=== PATIENT | female | born 1970 | race Caucasian/White ===

== ENCOUNTER 2022-08-28 08:56 | Inpatient (IN) | payer OTHER ==
--- OUTSIDE RECORDS SUMMARY | 2022-08-28 09:03 | XMS REPORT | Continuity of Care Document ---
:1970 Author Organization [facility] t Address [address] [place] [address] Care Team Providers Name Role Phone Asked, No Pcp Primary Care Physician Unavailable Elda Fofana Attending Clinician Unavailable Chanelle Bunn Attending Clinician Unavailable [email or web address] Attending Clinician Unavailable Juaquin STEVENS, Rudy Subramanian Attending Clinician Roselia Harper Attending Clinician Padmini Laws Attending Clinician [phone] [email or web address]_Anding_R Attending Clinician Unavailable Daron Mortensen Attending Clinician [phone] Noelle Attending Clinician Unavailable Le Echavarria MA Attending Clinician Unavailable Theresa STEVENS, Lucien Santos Attending Clinician Radha STEVENS, Julia Attending Clinician Yazan STEVENS, Casandra Attending Clinician Sohan STEVENS, Kvng Price Attending Clinician [phone] Jose Juan Colin Attending Clinician [phone] MIKEY DILLON Attending Clinician Unavailable MIKEY DILLON Attending Clinician Unavailable Mikey Dillon MD Attending Clinician Geovanna BERNAL Attending Clinician [phone] [email or web address]_D Attending Clinician Unavailable LIT TIERNEY Attending Clinician Unavailable GC_[email or web address]_[email or web address]_P Admitting Clinician Unavailable GC_SWHAOMC_Anding_R Admitting Clinician Unavailable Bridger_Ene Admitting Clinician Unavailable [email or web address]_D Admitting Clinician Unavailable Payers Payer Name Policy Type Policy Number Effective Date Expiration Date S thomas AETNA (POS) [id number] 2009 00:00:00 AETNA CHOICE [id number] 2018 POS II 00:00:00 AETNA C1 [id number] 2018 [facility] 00:00:00 - [facility] Problems Condition Condition Condition Status Onset Resolution Last Treating Co mments Source Name Details Category Date Date Treatment Clinician Date Female Female Problem Active [facility] stress Stress 4-30 Medical incontinen Incontinen 00:00: ce ce 00 Chronic Chronic Disease Active [facility] left hip left hip 2-21 st pain pain 00:00: Hospita 00 l [id number] Seasonal Problem Active Comm on allergic Spirit rhinitis, - [facility] unspecifie [facility] [id number] Mixed Problem Active Common hyperlipid Spirit emia [facility] No known No known Disease Unive rs active active ity of problems problems [facility] Allergies, Adverse Reactions, Alerts Allergy Allergy Status Severity Reaction(s) Onset Inactive Treating Comm ents Source Name Type Date Date Clinician No Known DA Active U 2018-08 [facility] 08[facility] [place] [facility] 00:[facility] 00 dic Hosp[facility] l No Known DA Active U 2010-08 [facility] Allergie 08-25 [place] [facility] 00 dic [facility]osp[facility] l NO KNOWN Drug Active Univers ALLERGIE Class ity of S [facility] Family History Family Member Diagnosis Comments Start Date Stop Date Source Maternal grandmother Diabetes [facility] Social History Social Habit Start Date Stop Date Quantity Comments Source History of [facility] - Tobacco Use [facility] Sex Assigned At [facility] - [facility] Alcohol intake 2021-11-06 2021-11-06 Current drinker [facility] 00:00:00 [facility]:00:00 of alcohol Hospital (finding) Tobacco use and 2019-10-14 2019-10-14 Smokeless tobacco [facility] exposure 00:00:00 00:00:00 non-user Hospital Tobacco Comment 2019-10-14 2019-10-14 none [facility] 00:00:00 00:00:00 Hospital Smoking Status Start Date Stop Date Source Never Smoker [facility] Medications Ordered Filled Start Stop Current Ordering Indication Dosage Frequency Signature Comments Components Source Medication Medication Date Date Medication? Clinician (SIG) Name Name pregabalin Yes 25mg Q.5D Take 1 Metho di (LYRICA) 25 04-[address] MG capsule 11:35: (25 mg Hospi ta 21 total) by l mouth 2 (two) times a day. cetirizine Yes 10mg QD Take 1 Meth[facility] di (ZyrTEC) 10 04-23 tablet (10 st MG tablet 11:35: mg total) Hos brendon 21 by mouth l daily. celecoxib 2021- No 200mg QD Take 1 Meth nik (CeleBREX) 04-[address] 200 MG 00:00: 04:59 (200 mg Hospita capsule 00 :00 total) by l mouth daily for 21 days. gabapentin 2020-08 No 300mg QD Take 1 Met hodi (NEURONTIN) 10-[address] 300 mg 00:00: 00:00 (300 mg Hospita capsule 00 :00 total) by l mouth nightly. nitrofurant 2020-08 No Metho di oin, 204-23 st macrocrysta 00:00: 00:00 Hospi ta l-monohydra 00 :00 l te, (MACROBID) 100 MG capsule cranberry cranberry No 2capsul Q1D cranberry [facility] 1,000 mg 1,000 mg 04-24 e(s) 1,000 mg Med ical capsule 2 capsule 2 00:00: capsule 2 capsules capsules 00 capsules every day every day every day by oral by oral by oral route. route. route. cranberry cranberry 2021-0 No 2capsul Q1D cranberry [facility] 1,000 mg 1,000 mg 9-01 e(s) 1,000 mg Med ical capsule 2 capsule 2 00:00: capsule 2 capsules capsules 00 capsules every day every day every day by oral by oral by oral route. route. route. cranberry cranberry No 2capsul Q1D cranberry [facility] 1,000 mg 1,000 mg 9-01 e(s) 1,000 mg Med ical capsule 2 capsule 2 00:00: capsule 2 capsules capsules 00 capsules every day every day every day by oral by oral by oral route. route. route. cranberry cranberry No 2capsul Q1D cranberry [facility] 1,000 mg 1,000 mg 9-01 e(s) 1,000 mg Med ical capsule 2 capsule 2 00:00: capsule 2 capsules capsules 00 capsules every day every day every day by oral by oral by oral route. route. route. cranberry cranberry No 2capsul Q1D cranberry [facility] 1,000 mg 1,000 mg - e(s) 1,000 mg Med ical capsule 2 capsule 2 00:00: capsule 2 capsules capsules 00 capsules every day every day every day by oral by oral by oral route. route. route. Triamcinolo Triamcinolo No BID Triamcinol ne ne 5-06 one Acetonide Acetonide 00:00: Acetonide 0.1 % 0.1 % 00 0.1 % Triamcinolo Triamcinolo 0 No BID Triamcinol ne ne 5-06 one Acetonide Acetonide 00:00: Acetonide 0.1 % 0.1 % 00 0.1 % Triamcinolo Triamcinolo 0 No BID Triamcinol ne ne 5-06 one Acetonide Acetonide 00:00: Acetonide 0.1 % 0.1 % 00 0.1 % Diclofenac Diclofenac 2019-08 No 1{table BID Diclofenac Sodium 50 Sodium 50 2-02 t} Sodium 50 MG MG 00:00: MG 00 Diclofenac Diclofenac 2019-08 No 1{table BID Diclofenac Sodium 50 Sodium 50 2-02 t} Sodium 50 MG MG 00:00: MG 00 Diclofenac Diclofenac 2019-08 No 1{table BID Diclofenac Sodium 50 Sodium 50 2-02 t} Sodium 50 MG MG 00:00: MG 00 Diclofenac Diclofenac 2019-08 No 1{table BID Diclofenac Sodium 50 Sodium 50 2 t} Sodium 50 MG MG 00:00: MG 00 Diclofenac Diclofenac 2019-08- No 1{table BID Diclofenac Sodium 50 Sodium 50 09-25 t} Sodium 50 MG MG 00:00: 00:00 MG 00 :00 PredniSONE PredniSONE 2020- No Deni Pruitt 1 tablet Common 05-01 Del Angel [facility] 00:00: 00:00 - CHI 00 :00 [facility] Fish Oil Fish Oil Yes Deni Pruitt 1 capsule Common [facility] Womens Womens Yes Deni Pruitt as Common Multivitami Multivitami Del Angel directed Spirit n n [facility] Advil Advil Yes Deni Pruitt as Common Allergy & Allergy & Del Angel directed S pirit Congestion Congestion - C [facility] Vitamin C Vitamin C Yes Deni Pruitt 1 tablet Common [facility] Calcium Calcium Yes Deni Pruitt 1 tablet Com kiera Del Angel with a Spirit meal [facility] Zyrtec Zyrtec No Zyrtec Allergy Allergy Allergy Calcium Calcium No 1{table QD Calcium 2209-5545 4139-8928 t_with_ [id number] MG-UNIT MG-UNIT a_meal} MG-UNIT Vitamin C Vitamin C No 1{table QD Vitamin C 1000 MG 1000 MG t} 1000 MG Womens Womens No Womens Multivitami Multivitami Multivitam n - n - in - Vitamin C Vitamin C No 1{table QD Vitamin C 1000 MG 1000 MG t} 1000 MG Calcium Calcium No 1{table QD Calcium 4532-0260 9632-7087 t_with_ [id number] MG-UNIT MG-UNIT a_meal} MG-UNIT Womens Womens No Womens Multivitami Multivitami Multivitam n - n - in - Zyrtec Zyrtec No Zyrtec Allergy Allergy Allergy Calcium Calcium No 1{table QD Calcium [id number] [id number] t_with_ [id number] MG-UNIT MG-UNIT a_meal} MG-UNIT Zyrtec Zyrtec No Zyrtec Allergy Allergy Allergy Womens Womens No Womens Multivitami Multivitami Multivitam n - n - in - Vitamin C Vitamin C No 1{table QD Vitamin C 1000 MG 1000 MG t} 1000 MG Calcium Calcium No 1{table QD Calcium [id number] 0328-1214 t_with_ [id number] MG-UNIT MG-UNIT a_meal} MG-UNIT Zyrtec Zyrtec No Zyrtec Allergy Allergy Allergy Womens Womens No Womens Multivitami Multivitami Multivitam n - n - in - Vitamin C Vitamin C No 1{table QD Vitamin C 1000 MG 1000 MG t} 1000 MG Calcium Calcium No 1{table QD Calcium [id number] 3051-8005 t_with_ [id number] MG-UNIT MG-UNIT a_meal} MG-UNIT Zyrtec Zyrtec No Zyrtec Allergy Allergy Allergy Womens Womens No Womens Multivitami Multivitami Multivitam n - n - in - Vitamin C Vitamin C No 1{table QD Vitamin C 1000 MG 1000 MG t} 1000 MG calcium calcium No calcium [facility] Fish Oil Fish Oil No Fish Oil Ana Luisa via Medical Macrobid Macrobid No Macrobid Ana Luisa via 100 mg 100 mg 100 mg Medical capsule Tk capsule Tk capsule Tk 1 cap po x 1 cap po x 1 cap po x 1 day after 1 day after 1 day each visit each visit after each To reduce To reduce visit To risk of UTI risk of UTI reduce after after risk of procedures procedures UTI after procedures multivitami multivitami No multivitam [facility] n n in Medical red yeast red yeast No red yeast [facility] rice rice rice Medical valacyclovi valacyclovi No valacyclov [facility] r 500 mg r 500 mg ir 500 mg Me dical tablet TAKE tablet TAKE tablet 1 TABLET BY 1 TABLET BY TAKE 1 MOUTH TWICE MOUTH TWICE TABLET BY A DAY A DAY MOUTH NEEDED NEEDED TWICE A DAY NEEDED Vitamin C Vitamin C No Vitamin C [facility] Zyrtec Zyrtec No Zyrtec [facility] calcium calcium No calcium [facility] Fish Oil Fish Oil No Fish Oil Ana Luisa via Medical multivitami multivitami No multivitam [facility] n n in Medical nitrofurant nitrofurant No nitrofuran [facility] oin oin toin Medical monohydrate monohydrate monohydrat /macrocryst /macrocryst e/macrocry als 100 mg als 100 mg stals 100 capsule Tk capsule Tk mg capsule 1 cap po x 1 cap po x Tk 1 cap 1 day after 1 day after po x 1 day each visit each visit after each visit red yeast red yeast No red yeast [facility] rice rice rice Medical triamcinolo triamcinolo No triamcinol [facility] ne ne one Medical acetonide acetonide acetonide 0.1 % 0.1 % 0.1 % topical topical topical cream cream cream valacyclovi valacyclovi No valacyclov [facility] r 500 mg r 500 mg ir 500 mg Me dical tablet TAKE tablet TAKE tablet 1 TABLET BY 1 TABLET BY TAKE 1 MOUTH TWICE MOUTH TWICE TABLET BY A DAY A DAY MOUTH NEEDED NEEDED TWICE A DAY NEEDED Vitamin C Vitamin C No Vitamin C [facility] Zyrtec Zyrtec No Zyrtec [facility] acetaminoph acetaminoph No acetaminop [facility] en 500 mg en 500 mg hen 500 mg Medical tablet Take tablet Take tablet 2 tablet(s) 2 tablet(s) Take 2 EVERY 8 EVERY 8 tablet(s) HOURS by HOURS by EVERY 8 oral route oral route HOURS by prn pain. prn pain. oral route Use this as Use this as prn pain. your main your main Use this pain pain as your medication medication main pain medication calcium calcium No calcium [facility] Fish Oil Fish Oil No Fish Oil Ana Luisa via [facility] fluconazole fluconazole No fluconazol [facility] 200 mg 200 mg e 200 mg Medical tablet 1 tablet 1 tablet 1 tab PO QOD tab PO QOD tab PO QOD x 2 doses x 2 doses x 2 doses ketorolac ketorolac No ketorolac [facility] 10 mg 10 mg 10 mg Medical tablet Take tablet Take tablet 1 tablet(s) 1 tablet(s) Take 1 EVERY 6 EVERY 6 tablet(s) HOURS prn HOURS prn EVERY 6 pain. Do pain. Do HOURS prn not take not take pain. Do for more for more not take than 4-5 than 4-5 for more days days than 4-5 days multivitami multivitami No multivitam [facility] n n in Medical nitrofurant nitrofurant No nitrofuran [facility] oin oin toin Medical macrocrysta macrocrysta macrocryst l 100 mg l 100 mg al 100 mg capsule 1 capsule 1 capsule 1 tab po tab po tab po daily daily daily nitrofurant nitrofurant No 1capsul BID nitrofuran [facility] oin oin e(s) toin Medical monohydrate monohydrate monohydrat /macrocryst /macrocryst e/macrocry als 100 mg als 100 mg stals 100 capsule capsule mg capsule Take 1 Take 1 Take 1 capsule capsule capsule twice a day twice a day twice a by oral by oral day by route as route as oral route directed directed as for 7 days. for 7 days. directed for 7 days. red yeast red yeast No red yeast [facility] rice rice rice Medical Vitamin C Vitamin C No Vitamin C [facility] Zyrtec Zyrtec No Zyrtec [facility] acetaminoph acetaminoph No acetaminop [facility] en 500 mg en 500 mg hen 500 mg Medical tablet Take tablet Take tablet 2 tablet(s) 2 tablet(s) Take 2 EVERY 8 EVERY 8 tablet(s) HOURS by HOURS by EVERY 8 oral route oral route HOURS by prn pain. prn pain. oral route Use this as Use this as prn pain. your main your main Use this pain pain as your medication medication main pain medication calcium calcium No calcium [facility] chlorzoxazo chlorzoxazo No chlorzoxaz [facility] ne 500 mg ne 500 mg one 500 mg Medical tablet tablet tablet Fish Oil Fish Oil No Fish Oil Ana Luisa via [facility] fluconazole fluconazole No fluconazol [facility] 200 mg 200 mg e 200 mg Medical tablet 1 tablet 1 tablet 1 tab PO QOD tab PO QOD tab PO QOD x 2 doses x 2 doses x 2 doses gabapentin gabapentin No gabapentin [facility] 300 mg 300 mg 300 mg Medical capsule capsule capsule TAKE 1 TAKE 1 TAKE 1 CAPSULE BY CAPSULE BY CAPSULE BY MOUTH EVERY MOUTH EVERY MOUTH DAY AT DAY AT EVERY DAY NIGHT NIGHT AT NIGHT ketorolac ketorolac No ketorolac [facility] 10 mg 10 mg 10 mg Medical tablet Take tablet Take tablet 1 tablet(s) 1 tablet(s) Take 1 EVERY 6 EVERY 6 tablet(s) HOURS prn HOURS prn EVERY 6 pain. Do pain. Do HOURS prn not take not take pain. Do for more for more not take than 4-5 than 4-5 for more days days than 4-5 days meloxicam meloxicam No meloxicam [facility] 15 mg 15 mg 15 mg Medical tablet tablet tablet methylpredn methylpredn No methylpred [facility] isolone 4 isolone 4 nisolone 4 Medical mg tablets mg tablets mg tablets in a dose in a dose in a dose pack pack pack multivitami multivitami No multivitam [facility] n n in Medical nitrofurant nitrofurant No nitrofuran [facility] oin oin toin Medical monohydrate monohydrate monohydrat /macrocryst /macrocryst e/macrocry als 100 mg als 100 mg stals 100 capsule capsule mg capsule TAKE 1 TAKE 1 TAKE 1 CAPSULE BY CAPSULE BY CAPSULE BY MOUTH TWICE MOUTH TWICE MOUTH A DAY A DAY TWICE A DIRECTED DIRECTED DAY FOR 7 DAYS FOR 7 DAYS DIRECTED FOR 7 DAYS pregabalin pregabalin No pregabalin [facility] 25 mg 25 mg 25 mg Medical capsule capsule capsule pregabalin pregabalin No pregabalin [facility] 50 mg 50 mg 50 mg Medical capsule capsule capsule red yeast red yeast No red yeast [facility] rice rice rice Medical Vitamin C Vitamin C No Vitamin C [facility] Zyrtec Zyrtec No Zyrtec [facility] acetaminoph acetaminoph No acetaminop [facility] en 500 mg en 500 mg hen 500 mg Medical tablet Take tablet Take tablet 2 tablet(s) 2 tablet(s) Take 2 EVERY 8 EVERY 8 tablet(s) HOURS by HOURS by EVERY 8 oral route oral route HOURS by prn pain. prn pain. oral route Use this as Use this as prn pain. your main your main Use this pain pain as your medication medication main pain medication calcium calcium No calcium [facility] chlorzoxazo chlorzoxazo No chlorzoxaz [facility] ne 500 mg ne 500 mg one 500 mg Medical tablet tablet tablet Fish Oil Fish Oil No Fish Oil [facility] Luisa [facility] No known [facility]con[facility] No fluconazol [facility] 200 mg 200 mg e 200 mg Medical tablet 1 tablet 1 tablet 1 tab PO QOD tab PO QOD tab PO QOD x 2 doses x 2 doses x 2 doses gabapentin gabapentin No gabapentin [facility] 300 mg 300 mg 300 mg Medical capsule capsule capsule TAKE 1 TAKE 1 TAKE 1 CAPSULE BY CAPSULE BY CAPSULE BY MOUTH EVERY MOUTH EVERY MOUTH DAY AT DAY AT EVERY DAY NIGHT NIGHT AT NIGHT ketorolac ketorolac No ketorolac [facility] 10 mg 10 mg 10 mg Medical tablet Take tablet Take tablet 1 tablet(s) 1 tablet(s) Take 1 EVERY 6 EVERY 6 tablet(s) HOURS prn HOURS prn EVERY 6 pain. Do pain. Do HOURS prn not take not take pain. Do for more for more not take than 4-5 than 4-5 for more days days than 4-5 days meloxicam meloxicam No meloxicam [facility] 15 mg 15 mg 15 mg Medical tablet tablet tablet methylpredn methylpredn No methylpred [facility] isolone 4 isolone 4 nisolone 4 Medical mg tablets mg tablets mg tablets in a dose in a dose in a dose pack pack pack multivitami multivitami No multivitam [facility] n n in Medical nitrofurant nitrofurant No nitrofuran [facility] oin oin toin Medical monohydrate monohydrate monohydrat /macrocryst /macrocryst e/macrocry als 100 mg als 100 mg stals 100 capsule capsule mg capsule Take 1 Take 1 Take 1 capsule capsule capsule twice a day twice a day twice a by oral by oral day by route as route as oral route directed directed as for 7 days. for 7 days. directed for 7 days. pregabalin pregabalin No pregabalin [facility] 25 mg 25 mg 25 mg Medical capsule capsule capsule pregabalin pregabalin No pregabalin [facility] 50 mg 50 mg 50 mg Medical capsule capsule capsule red yeast red yeast No red yeast [facility] rice rice rice Medical Vitamin C Vitamin C No Vitamin C [facility] Zyrtec Zyrtec No Zyrtec [facility] acetaminoph acetaminoph No acetaminop [facility] en 500 mg en 500 mg hen 500 mg Medical tablet Take tablet Take tablet 2 tablet(s) 2 tablet(s) Take 2 EVERY 8 EVERY 8 tablet(s) HOURS by HOURS by EVERY 8 oral route oral route HOURS by prn pain. prn pain. oral route Use this as Use this as prn pain. your main your main Use this pain pain as your medication medication main pain medication calcium calcium No calcium [facility] Cipro 250 Cipro 250 No 1 Q12H Cipro 250 [facility] mg tablet mg tablet mg tablet Medical Take 1 Take 1 Take 1 tablet tablet tablet every 12 every 12 every 12 hours by hours by hours by oral route oral route oral route for 7 days. for 7 days. for 7 days. Fish Oil Fish Oil No Fish Oil Ana Lu[facility] via [facility] Lyrica 25 Lyrica 25 No 1capsul Q1D Lyrica 25 [facility] mg capsule mg capsule e(s) mg capsule Medical Take 1 Take 1 Take 1 capsule capsule capsule every day every day every day by oral by oral by oral route. route. route. multivitami multivitami No multivitam [facility] n n in Medical nitrofurant nitrofurant No nitrofuran [facility] oin oin toin Medical monohydrate monohydrate monohydrat /macrocryst /macrocryst e/macrocry als 100 mg als 100 mg stals 100 capsule capsule mg capsule Take one Take one Take one pill post pill post pill post coital for coital for coital for suppression suppression suppressio therapy therapy n therapy red yeast red yeast No red yeast [facility] rice rice rice Medical Vitamin C Vitamin C No Vitamin C [facility] Zyrtec Zyrtec No Zyrtec [facility] acetaminoph acetaminoph No acetaminop [facility] en 500 mg en 500 mg hen 500 mg Medical tablet Take tablet Take tablet 2 tablet(s) 2 tablet(s) Take 2 EVERY 8 EVERY 8 tablet(s) HOURS by HOURS by EVERY 8 oral route oral route HOURS by prn pain. prn pain. oral route Use this as Use this as prn pain. your main your main Use this pain pain as your medication medication main pain medication calcium calcium No calcium [facility] celecoxib celecoxib No celecoxib [facility] 200 mg 200 mg 200 mg Medical capsule capsule capsule ciprofloxac ciprofloxac No ciprofloxa [facility] in 250 mg in 250 mg diandra 250 mg Medical tablet Take tablet Take tablet 1 tablet 1 tablet Take 1 every 12 every 12 tablet hours by hours by every 12 oral route oral route hours by for 7 days. for 7 days. oral route for 7 days. Fish Oil Fish Oil No Fish Oil Ana Luisa via Medical Lyrica 25 Lyrica 25 No 1capsul Q1D Lyrica 25 [facility] mg capsule mg capsule e(s) mg capsule Medical Take 1 Take 1 Take 1 capsule capsule capsule every day every day every day by oral by oral by oral route. route. route. methylpredn methylpredn No methylpred [facility] isolone 4 isolone 4 nisolone 4 Medical mg tablets mg tablets mg tablets in a dose in a dose in a dose pack TAKE 6 pack TAKE 6 pack TAKE TABLETS ON TABLETS ON 6 TABLETS DAY 1 DAY 1 ON DAY 1 DIRECTED ON DIRECTED ON PACKAGE AND PACKAGE AND DIRECTED DECREASE BY DECREASE BY ON PACKAGE 1 TAB EACH 1 TAB EACH AND DAY FOR A DAY FOR A DECREASE TOTAL OF 6 TOTAL OF 6 BY 1 TAB DAYS DAYS EACH DAY FOR A TOTAL OF 6 DAYS multivitami multivitami No multivitam [facility] n n in Medical nitrofurant nitrofurant No nitrofuran [facility] oin oin toin Medical monohydrate monohydrate monohydrat /macrocryst /macrocryst e/macrocry als 100 mg als 100 mg stals 100 capsule capsule mg capsule Take one Take one Take one pill post pill post pill post coital for coital for coital for suppression suppression suppressio therapy therapy n therapy red yeast red yeast No red yeast [facility] rice rice rice Medical triamcinolo triamcinolo No triamcinol [facility] ne ne one Medical acetonide acetonide acetonide 0.1 % 0.1 % 0.1 % topical topical topical ointment ointment ointment APPLY TO APPLY TO APPLY TO AFFECTED AFFECTED AFFECTED AREA TWICE AREA TWICE AREA TWICE A DAY A DAY A DAY Vitamin C Vitamin C No Vitamin C [facility] Zyrtec Zyrtec No Zyrtec [facility] No known No [facility] medications [facility] Immunizations Ordered Immunization Filled Immunization Date Status Commen ts Source Name Name Dexamethasone Dexamethasone 2020-12-27 Completed [facility] 10:40:00 [facility] Dexamethasone Dexamethasone 2020-12-27 Completed [facility] 10[facility]40:00 [facility] Dexamethasone Dexamethasone 2020-12-27 Completed [facility] 10:40:00 [facility] Kenalog Jefryalog 2020-12-27 Completed [facility] (Triamcinolone) (Triamcinolone) 10:39:00 [facility] Rina Flynn 2020-12-27 Completed [facility] (Triamcinolone) (Triamcinolone) 10:39:00 [facility] Jefryalog Jefryalog 2020-12-27 Completed [facility] (Triamcinolone) (Triamcinolone) 10:39:00 [facility] influenza, influenza, 2020-05-24 Completed [facility] unspecified unspecified 00:00:00 formulation formulation influenza, influenza, 2020-05-24 Completed [facility] unspecified unspecified 00:00:00 formulation formulation influenza, influenza, 2020-05-24 Completed [facility] unspecified unspecified 00:00:00 formulation formulation influenza, influenza, 2020-05-24 Completed [facility] unspecified unspecified 00:00:00 formulation formulation influenza, influenza, 2020-05-24 Completed [facility] unspecified unspecified 00:00:00 formulation formulation influenza, influenza, 2017-05-24 Completed [facility] injectable, injectable, 00:00:00 quadrivalent quadrivalent influenza, influenza, 2017-05-24 Completed [facility] injectable, injectable, 00:00:00 quadrivalent quadrivalent influenza, influenza, 2017-05-24 Completed [facility] injectable, injectable, 00:00:00 quadrivalent quadrivalent influenza, influenza, 2017-05-24 Completed [facility] injectable, injectable, 00:00:00 quadrivalent quadrivalent influenza, influenza, 2017-05-24 Completed [facility] injectable, injectable, 00:00:00 quadrivalent quadrivalent influenza, influenza, 2017-05-24 Completed [facility] injectable, injectable, 00:00:00 quadrivalent quadrivalent influenza, influenza, 2017-05-24 Completed [facility] injectable, injectable, 00:00:00 quadrivalent quadrivalent Vital Signs Vital Name Observation Time Observation Value Comments Source Height 2022-05-22 00:00:00 65 [in_i] [facility] BP Diastolic 2022-04-23 00:00:00 73 mm[Hg] [facility] Height 2022-04-23 00:00:00 65 [in_i] [facility] BMI (Body Mass 2022-04-23 00:00:00 22 kg/m2 [facility] Medical Index) BP Systolic 2022-04-23 00:00:00 120 mm[Hg] [facility] Body Weight 2022-04-23 00:00:00 132 [lb_av] [facility] BP Diastolic 2022-03-26 00:00:00 69 mm[Hg] [facility] Height 2022-03-26 00:00:00 65 [in_i] [facility] BMI (Body Mass 2022-03-26 00:00:00 22.1 kg/m2 [facility] Medical Index) BP Systolic 2022-03-26 00:00:00 126 mm[Hg] [facility] ical Body Weight 2022-03-26 00:00:00 133 [lb_av] Gianna Estrada edical BP Diastolic 2022-03-11 00:00:00 72 mm[Hg] Gianna Estraad edical Height 2022-03-11 00:00:00 65 [in_i] Gianna Estrada edical BP Systolic 2022-03-11 00:00:00 122 mm[Hg] Gianna Estrada edical Height 2021-08-12 00:00:00 65 [in_i] Gianna Estrada edical Systolic blood 2021-02-04 13:16:00 128 mm[Hg] Univer sity of pressure [facility] Diastolic blood 2021-02-04 13:16:00 83 mm[Hg] Unive rsity of pressure [facility] Heart rate 2021-02-04 13:16:00 73 /min [facility] Body height 2021-02-04 13:16:00 165.1 cm [facility]i ty [facility] Body weight 2021-02-04 13:16:00 64.411 kg [facility]i ty [facility] BMI 2021-02-04 13:16:00 23.63 kg/m2 [facility] in 2021-02-04 13:16:00 100 /min [facility] Arterial blood by [facility] Pulse oximetry Branch Height 2021-01-01 00:00:00 65 [in_i] Gianna Estrada edical height 2020-12-27 09:40:00 65.50 [in_i] [facility] weight 2020-12-27 09:40:00 146 [lb_av] [facility] temperature 2020-12-27 09:40:00 98.2 [degF] Common [facility] bmi 2020-12-27 09:40:00 23.92 kg/m2 Common [facility] oximetry 2020-12-27 09:40:00 98 % [facility] respiratory rate 2020-12-27 09:40:00 16 /min Comm on [facility] blood pressure 2020-12-27 09:40:00 129 mm[Hg] [facility] blood pressure 2020-12-27 09:40:00 76 mm[Hg] [facility] - diastolic [facility] BP Diastolic 2020-12-21 00:00:00 67 mm[Hg] Gianna Estrada edical Height 2020-12-21 00:00:00 65 [in_i] Gianna Estrada edical BP Systolic 2020-12-21 00:00:00 134 mm[Hg] Gianna Estrada edical height 2020-08-22 08:20:00 65.50 [in_i] Common [facility] weight 2020-08-22 08:20:00 145.6 [lb_av] [facility] temperature 2020-08-22 08:20:00 97.9 [degF] Common [facility] bmi 2020-08-22 08:20:00 23.86 kg/m2 [facility] oximetry 2020-08-22 08:20:00 99 % [facility] respiratory rate 2020-08-22 08:20:00 18 /min Comm on [facility] blood pressure 2020-08-22 08:20:00 113 mm[Hg] Common [facility] - systolic [facility] blood pressure 2020-08-22 08:20:00 74 mm[Hg] Common [facility] - diastolic [facility] height 2020-07-25 13:20:00 65.50 [in_i] [facility] weight 2020-07-25 13:20:00 145.6 [lb_av] [facility] temperature 2020-07-25 13:20:00 98.1 [degF] Common [facility] bmi 2020-07-25 13:20:00 23.86 kg/m2 Common [facility] oximetry 2020-07-25 13:20:00 99 % Common [facility] respiratory rate 2020-07-25 13:20:00 18 /min Comm on [facility] blood pressure 2020-07-25 13:20:00 122 mm[Hg] Common [facility] - systolic [facility] blood pressure 2020-07-25 13:20:00 79 mm[Hg] Common [facility] - diastolic [facility] Systolic blood 2021-11-06 18:58:00 165 mm[Hg] Method [facility] Hospital pressure Diastolic blood 2021-11-06 18:58:00 87 mm[Hg] [facility] pressure Heart rate 2021-11-06 18:58:00 75 /min [facility] Body height 2021-11-06 18:58:00 165.1 cm [facility] Body weight 2021-11-06 18:58:00 63.504 kg [facility] BMI 2021-11-06 18:58:00 23.30 kg/m2 [facility] Procedures Procedure Date / Time Performed Performing Clinician Sour e XR HIP 4 VIEWS LEFT 2022-04-23 15:51:21 Rudy Reza [facility] MAMMO, screening, 2022-03-18 00:00:00 [facility] digital, bilateral BONE DENSITY MEASUREMENT 2022-03-18 00:00:00 Ana Luisa via Medical USING DEDICATED X RAY MACHINE MAMMO, screening, 2022-03-11 00:00:00 [facility] digital, bilateral BONE DENSITY MEASUREMENT 2022-03-11 00:00:00 Ana Luisa via Medical USING DEDICATED X RAY MACHINE XR CERVICAL SPINE AP 2021-11-22 14:53:44 Vivian Estrada [facility] LATERAL FLEXION AND EXTENSION XR WRIST 3+ VW LEFT 2021-10-16 18:05:40 Kvng Mccloud [facility] Dee MRI CERVICAL SPINE W WO 2021-09-11 15:18:09 Kvng Mccloud [facility] CONTRAST Dee Incontinence Procedure: 2021-01-16 00:00:00 [facility] Suburethral Sling Urologic Surgery 2021-01-16 00:00:00 [facility] bakari Breast Surgery 2016-09-04 00:00:00 [facility] Carpal Tunnel Surgery 2011-06-24 00:00:00 [facility] Breast Surgery 1995-03-24 00:00:00 [facility] Plan of Care Planned Activity Planned Date Details Comments Source Future Scheduled Test 2022-08-28 COVID-19 VACCINE [facility] 09:00:46 (#1) [code = COVID-19 VACCINE (#1)] Future Scheduled Test 2022-08-[address] [facility] 09:00:46 screening (procedure) [code = 688427435] Future Scheduled Test 2022-08-28 Screening for [facility] 09:00:46 malignant neoplasm of cervix (procedure) [code = 496440556] Future Scheduled Test 2022-08-28 BREAST CANCER [facility] 09:00:46 SCREENING [code = BREAST CANCER SCREENING] Future Scheduled Test 2022-08-[address] [facility] 09:00:46 SCREENING [code = COLONOSCOPY SCREENING] Future Scheduled Test 2022-08-28 SHINGLES VACCINES ([facility] 09:00:46 of 2) [code = SHINGLES VACCINES (1 of 2)] Future Scheduled Test 2022-08-28 INFLUENZA VACCINE [facility] 09:00:46 [code = INFLUENZA VACCINE] Diagnostic Test 2022-04-23 urinalysis, complete [facility] Pending 00:00:00 [code = urinalysis, complete] Diagnostic Test 2022-04-23 culture, urine [code [facility] Pending 00:00:00 = culture, urine] Future Appointment 2023-03-11 Daron Mortensen, [address] [facility] 00:00:00 [facility]; [address], [place] [address] Encounters Start End Encounter Admission Attending Care Care Encounter Source Date/Time Date/Time Type Type Clinicians Facility Department ID 2021-09-18 Outpatient Brigido, [facility] [id number] Common 13:07:56 Elda [id number] [facility] 2021-09-18 Outpatient [place], STHEDYLC [facility] [id number] Common 13:06:12 Elda 45074 [facility] 2021-09-18 Outpatient [place], STLMLC STLC [id number] Common 12:16:18 Elda [id number] [facility] 2021-09-18 Outpatient [place], STHEDYLC STLC [id number] Common 12:09:47 Elda [id number] [facility] 2021-09-18 Outpatient [place], STLMLC STLC [id number] Common 12:03:12 Elda [id number] [facility] 2021-09-18 Outpatient Millender, STLMLC STLMLC [id number] Common 11:42:13 Chanelle [id number] [facility] 2022-05-26 2022-05-26 Outpatient [facility] PRIV PRIV 506 [id number] [facility] 00:00:00 00:00:00 _Lotze_P [id number] Medic al 2022-05-22 2022-05-22 Padmini [facility]IV [facility] 29 [facility] 00:00:00 00:00:00 [facility] - Medic al Laws, [facility] STAFF PSYCHOLOGIST: [address], Office* [address], [place] [address] , Ph. [phone] 2022-05-21 2022-05-21 Outpatient [facility] PRIV PRIV 506 [id number] [facility] 00:00:00 00:00:00 _Lotze_P [id number] Medic al 2022-04-23 2022-04-23 [facility], 1.2.840.1 [id number] [id number] Methodi 11:12:12 23:59:00 Encounter Rudy 02839.1.[address] Lit 3.430.2.7 Hospit a .3.092159 l .8 2022-04-23 2022-04-23 Office Leroy, 1.2.840.1 [id number] [id number] Methodi 10:30:00 11:41:41 Visit Roselia 07218.1.[address] 3.430.2.7 Hospit a .3.325816 l .8 2022-04-23 2022-04-23 [facility], 1.2.840.1 [id number] Methodi 11:11:59 11:11:59 Encounter Rudy 45989.1.[address] Lit 3.430.2.7 Hospit a .3.857060 l .8 2022-04-23 2022-04-23 [facility], 1.2.840.1 [id number] Methodi 10:55:18 11:10:00 Encounter Rudy 26947.1.[address] Lit 3.430.2.7 Hospit a .3.674459 l .8 2022-04-23 2022-04-23 Outpatient [facility] PRIV PRIV 506 [id number] [facility] 00:00:00 00:00:00 _Lotze_P [id number] Medic al 2022-04-23 2022-04-23 Outpatient [facility] [id number] Sheldon 00:00:00 00:00:[address] 2022-04-23 2022-04-23 Orders Reza, 1.2.840.1 [id number] Methodi 00:00:00 00:00:00 Only Rudy 69403.1.[address] Lit 3.430.2.7 Hospit a .3.862260 l .8 2022-04-23 2022-04-23 Travel 1.2.840.1 1.2.796.094 0154 [id number] Methodi 00:00:00 00:00:[address] 3.430.2.7 0.2.7.3.698 Ho spita .3.686660 084.8 l .8 2022-04-23 2022-04-23 Outpatient [facility] [id number] [place]ldon 00:00:00 00:00:00 RUDY [address] 2022-04-23 2022-04-23 Outpatient [facility] [id number] [place]on 00:00:00 00:00:00 RUDY [address] 2022-04-23 2022-04-23 Outpatient Laws, PRIV PRIV [id number] 00:00:00 00:00:00 Padmini Trinidad [id number] 2022-04-23 2022-04-[address] - [facility] [id number] [facility] 00:00:00 00:00:00 [facility] - Medic al Laws, _[facility] STAFF PSYCHOLOGIST: [address], Office* [address], [place] [address] , Ph. [phone] 2022-04-23 2022-04-23 Outpatient [facility] [id number] [place]on 00:00:00 00:00:00 RUDY [address] 2022-04-23 2022-04-23 Outpatient [facility] [id number] [address] [place] [address] 00:00:00 00:00:00 RUDY [address] 2022-04-22 2022-04-22 Outpatient [facility] PRIV PRIV 506 [id number] [facility] 00:00:00 00:00:00 _Lotze_P [id number] Medic al 2022-04-03 2022-04-03 Outpatient GC_[facility]_ PRIV PRIV 506 [id number] [facility] 00:00:00 00:00:00 Anding_R [id number] Medic al 2022-04-01 2022-04-01 Outpatient [facility] PRIV PRIV 506 [id number] [facility] 00:00:00 00:00:00 _Lotze_P [id number] Medic al 2022-03-26 2022-03-26 Outpatient [facility] PRIV PRIV 506 [id number] [facility] 00:00:00 00:00:00 _Lotze_P 145570 Medic al 2022-03-26 2022-03-26 Padmini [facility]IV [facility] 03 [facility] 00:00:00 00:00:00 [facility] - Medic MISAEL RodriguezPRKaren STAFF PSYCHOLOGIST: [address], Office* [address], [place] [address] , Ph. [phone] 2022-03-26 2022-03-26 Outpatient Laws, PRIV PRIV [id number] 00:00:00 00:00:00 Padmini Trinidad [id number] 2022-03-11 2022-03-11 Outpatient GC_[facility]_ PRIV PRIV 506 [id number] [facility] 11:36:00 11:36:00 Anding_R [id number] Medic al 2022-03-11 2022-03-11 Daron [facility] 19 [facility] 00:00:00 00:00:00 [facility] - Medic AIDA Akbar_ MD: [address], [address], [place] [address] , Ph. 2022-03-11 2022-03-11 Outpatient Anding, PRIV PRIV [id number] 2-0 00:00:00 00:00:00 Daron [id number] Layo [id number] 8979-07-18 2022-03-10 Outpatient GC_[facility]_ PRIV PRIV 506 [id number] [facility] 12:05:00 12:05:00 Anding_R [id number] Medic al 2022-03-05 2022-03-05 Outpatient GC_[facility]_ PRIV PRIV 506 [id number] [facility] 11:46:00 11:46:00 Anding_R [id number] Medic al 2022-02-17 2022-02-17 Outpatient GC_[facility]_ PRIV PRIV 506 [id number] [facility] 10:05:00 10:05:00 Anding_R [id number] Medic al 2022-01-28 2022-01-28 Outpatient FOG_[place] AOSM AOSM 631 [id number] Kelley 08:08:00 08:08:00 _Ene 769951 Ortho pe dic Sports Medicin e 2021-12-03 2021-12-03 Orders Jericho 1.2.840.1 [id number] 0897 Methodi 00:00:00 00:00:00 Only Le 30943.1.[address] 3.430.2.7 Hospit a .3.697978 l .8 2021-11-22 2021-11-22 Hospital Lucien Taylor 1.2.840.1 [id number] 2100 [id number] Methodi 09:15:00 23:59:00 Encounter Danielle 91542.1.[address] 3.430.2.7 Hospit a .3.583581 l .8 2021-11-22 2021-11-22 Procedure Julia Catalan 1.2.840.1 [id number] Methodi 08:00:00 09:06:[address] 3.430.2.7 Hospit a .3.116052 l .8 2021-11-22 2021-11-22 Outpatient LUCIEN TAYLOR [facility] [id number] [place] 00:00:00 00:00:[address] 2021-11-22 2021-11-22 Travel 1.2.840.1 1.2.934.657 5492 [id number] Methodi 00:00:00 00:00:[address] 3.430.2.7 0.2.7.3.698 Ho spita .3.809461 084.8 l .8 2021-11-22 2021-11-22 Outpatient JULIA CATALAN [facility] [id number] She[place]on 00:00:00 00:00:[address] 2021-11-06 2021-11-06 Office Lucien Taylor 1.2.840.1 [id number] Methodi 15:00:00 15:58:54 Visit Danielle 30485.1.[address] 3.430.2.7 Hospit a .3.991143 l .8 2021-11-06 2021-11-06 Outpatient LUCIEN TAYLOR [facility] [id number] [place] 00:00:00 00:00:[address] 2021-11-06 2021-11-06 Travel 1.2.840.1 1.2.134.699 6683 [id number] Methodi 00:00:00 00:00:[address] 3.430.2.7 0.2.7.3.698 Ho spita .3.346121 084.8 l .8 2021-10-29 2021-10-29 Outpatient [facility]_ PRIV PRIV 506 [id number] [facility] 05:50:00 05:50:00 Anding_R 676704 Medic al 2021-10-29 2021-10-29 Telephone Casandra Hand 1.2.840.1 [id number] Methodi 00:00:00 00:00:[address] 3.430.2.7 Hospit a .3.827159 l .8 2021-10-16 2021-10-16 Office Sohan, 1.2.840.1 [id number] Methodi 11:20:00 11:53:34 Visit Kvng 02978.1.[address] Dee 3.430.2.7 Hospi ta .3.989935 l .8 2021-10-16 2021-10-16 Outpatient SOHAN, [facility] [id number] [place]on 00:00:00 00:00:00 KVNG [address] 2021-10-16 2021-10-16 Outpatient SOHAN, [facility] [id number] [place] 00:00:00 00:00:00 KVNG [address] 2021-10-16 2021-10-16 Travel 1.2.840.1 1.2.850.303 2849 121751 Methodi 00:00:00 00:00:[address] 3.430.2.7 0.2.7.3.698 spita .3.455849 084.8 l .8 2021-09-19 2021-09-19 Outpatient [facility] PRIV PRIV 506 [id number] [facility] 03:15:00 03:15:00 _Lotze_P [id number] Medic al 2021-09-18 2021-09-18 Outpatient [facility] PRIV PRIV 506 [id number] [facility] 10:28:00 10:28:00 _Lotze_P [id number] Medic al 2021-09-18 2021-09-18 [facility] Sohan 1.2.840.1 [id number] 24135 Methodi 00:00:00 00:00:00 Only Kvng 53099.1.[address] Dee 3.430.2.7 Hospi ta .3.526350 l .8 2021-09-17 2021-09-17 Outpatient [facility] PRIV PRIV 506 [id number] [facility] 02:36:00 02:36:00 _Lotze_P 899138 Medic al 2021-09-12 2021-09-12 Outpatient [facility] PRIV PRIV 506 6860-20 [facility] 02:18:00 02:18:00 _Lotze_P [id number] Medic al 2021-09-11 2021-09-11 Outpatient SOHAN [facility] [id number] [place]on 00:00:00 00:00:[address] 2021-08-24 2021-08-24 Outpatient [facility] PRIV PRIV 506 [id number] [facility] 03:02:00 03:02:00 _Lotze_P [id number] Medic al 2021-08-13 2021-08-13 Outpatient [facility] PRIV PRIV 506 6860-20 [facility] 10:54:00 10:54:00 _Lotze_P 252027 Medic al 2021-08-12 2021-08-12 Outpatient [facility] PRIV PRIV 506 [id number] [facility] 10:18:00 10:18:00 _Lotze_P [id number] Medic al 2021-08-12 2021-08-12 Jose Juan [facility] [id number] [facility] 00:00:00 00:00:00 [facility] shlomo Colin MD: GC_[facility] [address], Office* [address], [place] [address] , Ph. [phone] 2021-08-12 2021-08-12 Outpatient Lotze, PRIV PRIV [id number] c-6 00:00:00 00:00:00 Jose Juan [id number] Amado [id number] 2021-08-09 2021-08-09 Outpatient [facility] PRIV PRIV 506 [id number] [facility] 11:42:00 11:42:00 _Lotze_P [id number] Medic al 2021-08-08 2021-08-08 Outpatient [facility] PRIV PRIV 506 [id number] [facility] 07:48:00 07:48:00 _Lotze_P 893408 Medic al 2021-08-07 2021-08-07 Outpatient [facility] PRIV PRIV 506 [id number] [facility] 01:02:00 01:02:00 _Lotze_P 694352 Medic al 2021-07-22 2021-07-22 Outpatient [facility] PRIV PRIV 506 [id number] [facility] 05:28:00 05:28:00 _Lotze_P 324543 Medic al 2021-07-16 2021-07-16 Jose Juan [facility] [id number] [facility] 00:00:00 00:00:00 [facility] Medic shlomo Colin MD: GC_[facility] [address], Office* [address], [place] [address] , Ph. [phone] 2021-02-26 2021-02-26 Outpatient MIKEY ZAMBRANO [facility] [id number] Univers 00:00:00 00:00:00 MIKEY DILLON [facility] 2021-02-04 2021-02-04 Office Santana [facility] 1.2.840.114 [id number] [facility] 08:03:11 08:46:08 Visit Mikey Brooks Ellis 350.1.13.10 [facility] 4.2.7.2.686 [facility] Professio [id number] Ny dical [facility] 2021-02-04 2021-02-04 Outpatient MIKEY ZAMBRANO [facility] [id number] Univers 08:00:00 08:00:00 MIKEY DILLON [facility] 2021-01-14 2021-01-14 (TEL) [facility] STLC [id number] Co mmon 00:00:00 00:00:00 [facility] 2021-01-10 2021-01-10 (TEL) [facility] STLC [id number] Co mmon 00:00:00 00:00:00 [facility] 2021-01-02 2021-01-02 Outpatient [facility] PRIV PRIV 506 [id number] [facility] 05:36:00 05:36:00 _Lotze_P [id number] Medic al 2021-01-01 2021-01-01 Outpatient [facility] PRIV PRIV 506 6860-20 [facility] 05:29:00 05:29:00 _Lotze_P [id number] Medic al 2021-01-01 2021-01-01 Geovanna BERNAL, [facility] 2020 510 [facility] 00:00:00 00:00:00 STAFF PSYCHOLOGIST: [address]00 Health - [facility] bakari Heredia, [facility] [address], Office* [place] [address] , Ph. [phone] 2021-01-01 2021-01-01 Outpatient Geovanna BERNAL PRIV PRIV [id number] 00:00:00 00:00:00 [id number] 2020-12-28 2020-12-28 Outpatient [facility] PRIV PRIV 506 [id number] [facility] 12:43:00 12:43:00 _Lotze_P [id number] Medic al 2020-12-27 2020-12-27 OFFICE STLMLC STLMLC [id number] Co mmon 00:00:00 00:00:00 VISIT EST Spir it PT LEVEL 3 - [facility] 2020-12-26 2020-12-26 Outpatient [facility] PRIV PRIV 506 [id number] [facility] 05:29:00 05:29:00 _Lotze_P [id number] Medic al 2020-12-21 2020-12-21 Outpatient [facility] PRIV PRIV 506 [id number] [facility] 01:12:00 01:12:00 _Lotze_P 945349 Medic al 2020-12-21 2020-12-21 Peter [facility]IV [facility] 00:00:00 00:00:00 [facility] Medic shlomo Colin MD: [facility] [address], Office* [address], [place] [address] , Ph. [phone] 2020-12-21 2020-12-21 Outpatient Lotze, PRIV PRIV [id number] c-2 00:00:00 00:00:00 Jose Juan [id number] Amado [id number] 2020-12-19 2020-12-19 Outpatient [facility] PRIV PRIV 506 [id number] [facility] 11:22:00 11:22:00 _Lotze_P 070113 Medic al 2020-12-17 2020-12-17 Outpatient GC_[facility]_ PRIV PRIV 506 [id number] [facility] 04:33:00 04:33:00 Black_D 070543 Medica l 2020-12-12 2020-12-12 Outpatient [facility] PRIV PRIV 506 [id number] [facility] 05:45:00 05:45:00 _Lotze_P 070715 Medic al 2020-08-22 2020-08-22 OFFICE STLMLC STLMLC [id number] Co mmon 00:00:00 00:00:00 VISIT EST Spir it PT LEVEL 3 - [facility] 2020-07-25 2020-07-25 PREV VISIT STLMLC STLMLC [id number] Common 00:00:00 00:00:00 EST AGE Spirit 40-64 - [facility] 2020-05-01 2020-05-01 Outpatient [facility] [id number] Common 14:20:00 14:20:00 [facility] 2020-04-24 2020-04-24 Outpatient [facility] [id number] Common 09:00:00 09:00:00 [facility] 2020-04-23 2020-04-23 Outpatient [facility] [id number] Common 15:56:00 15:56:00 [facility] 2019-12-13 2019-12-[address] [facility] [id number] Sheldon 00:00:00 00:00:00 , LIT [address] 2019-10-28 2019-10-[address] [facility] [id number] Sheldon 00:00:00 00:00:00 , LIT [address] 2018-12-17 2018-12-17 Outpatient [facility] [id number] Common 15:20:00 15:20:00 [facility] Results Test Description Test Time Test Comments Results Result Comments Source Bacteria identified in Urine by Culture 2022-05-17 00:00:00 Test Item Value Reference Range Interpretation Comme nts Bacteria identified in Urine by Culture (test code = 630-4) see not e [facility] Medical[facility]inalysis complete panel - [id number] 00:00:00 Test Item Value Reference Range Interpretation Comments Color of Urine (test yellow yellow code = 5778-6) Appearance of Urine clear clear (test code = 5767-9) Specific gravity of 1.013 1.001-1.035 Urine by Test strip (test code = 5811-5) pH of Urine by Test 7.0 5.0-8.0 strip (test code = 5803-2) Glucose [Presence] in negative negative Urine by Test strip (test code = 09992-3) Bilirubin.total negative negative [Presence] in Urine by Test strip (test code = 5770-3) Ketones [Presence] in negative negative Urine by Test strip (test code = 2514-8) Hemoglobin [Presence] negative negative in Urine by Test strip (test code = 5794-3) Protein [Presence] in negative negative Urine by Test strip (test code = 49863-1) Nitrite [Presence] in negative negative Urine by Test strip (test code = 5802-4) Leukocyte esterase negative negative [Presence] in Urine by Test strip (test code = 5799-2) Leukocytes [#/area] in none seen See_Comment [Aut omated message] Urine sediment by The system which Microscopy high power genera acosta this result field (test code = transmitt ed reference 5821-4) range: < or = 5 . The reference range was not used to int erpret this result as normal/abnormal . Erythrocytes [#/area] 0-2 See_Comment [Auto mated message] in Urine sediment by The sys tem which Microscopy high power genera acosta this result field (test code = transmitt [place] reference 12350-2) range: < or = 2 . The reference range was not used to int erpret this result as normal/abnormal . Epithelial none seen See_Comment [Automated mes liudmila] cells.squamous [#/area] The system which in Urine sediment by [employer] ed this result Microscopy high power transm itted reference field (test code = range: < or = 5. The 93753-8) reference range was not used to int erpret this result as normal/abnormal . Bacteria [#/area] in none seen none seen Urine sediment by Microscopy high power field (test code = 5769-5) Hyaline casts [#/area] none seen none seen in Urine sediment by Microscopy low power field (test code = 5796-8) Service comment 01 (test code = 8251-1) [facility] U[facility] by [id number] 00:00:00 Test Item Value Reference Range Interpretation Comments Bacteria identified in Urine by see note Culture (test code = 630-4) [facility] identified in Urine by [id number] 00:00:00 Test Item Value Reference Range Interpretation Comments Bacteria identified in Urine by see below no growth A Culture (test code = 630-4) [facility] complete panel - [id number] 00:00:00 Test Item Value Reference Range Interpretation Comments Specific gravity of Urine 1.007 1.003-1.030 (test code = 2965-2) pH of Urine (test code = 7.0 5.0-8.0 2756-5) Protein [Presence] in Urine by negative negative Test strip (test code = 20456-2) Glucose [Presence] in Urine by negative negative Test strip (test code = 39841-1) Ketones [Presence] in Urine by negative negative Test strip (test code = 2514-8) Urobilinogen [Units/volume] in 0.2 mg/dL 0.2-1.0 Urine by Test strip (test code = 96754-0) Bilirubin.total [Presence] in negative negative Urine by Test strip (test code = 5770-3) Hemoglobin [Presence] in Urine negative negative by Test strip (test code = 5794-3) Nitrite [Presence] in Urine by negative negative Test strip (test code = 5802-4) Crystals [type] in Urine none none sediment by Light microscopy (test code = 5782-8) Leukocytes [#/area] in Urine 0-4 0-4 sediment by Microscopy high power field (test code = 5821-4) Erythrocytes [#/area] in Urine none seen none seen sediment by Microscopy high power field (test code = 82937-9) RBC casts [Presence] in Urine none seen 0-1 sediment by Light microscopy (test code = 69094-7) Hyaline casts [Presence] in 0-4 0-4 Urine sediment by Light microscopy (test code = 16438-8) Epithelial cells [Presence] in none none-few Urine sediment by Light microscopy (test code = 44003-8) Granular casts [Presence] in none seen 0-1 Urine sediment by Light microscopy (test code = 48344-7) Bacteria [Presence] in Urine none none-few sediment by Light microscopy (test code = 08260-2) Leukocyte esterase [Presence] moderate negative A in Urine by Test strip (test code = 5799-2) Color of Urine (test code = yellow yellow, straw, elle 5778-6) Character of Urine (test code clear clear = 17679-3) [facility] identified in Urine by [id number] 00:00:00 Test Item Value Reference Range Interpretation Comments Bacteria identified in Urine by see note A Culture (test code = 630-4) [facility]inalysis complete panel - [id number] 00:00:00 Test Item Value Reference Range Interpretation Comments Color of Urine (test yellow yellow code = 5778-6) Appearance of Urine cloudy clear A (test code = 5767-9) Specific gravity of 1.009 1.001-1.035 Urine by Test strip (test code = 5811-5) pH of Urine by Test 6.5 5.0-8.0 strip (test code = 5803-2) Glucose [Presence] in negative negative Urine by Test strip (test code = 50834-5) Bilirubin.total negative negative [Presence] in Urine by Test strip (test code = 5770-3) Ketones [Presence] in negative negative Urine by Test strip (test code = 2514-8) Hemoglobin [Presence] trace negative A in Urine by Test strip (test code = 5794-3) Protein [Presence] in negative negative Urine by Test strip (test code = 61737-6) Nitrite [Presence] in positive negative A Urine by Test strip (test code = 5802-4) Leukocyte esterase 3+ negative A [Presence] in Urine by Test strip (test code = 5799-2) Leukocytes [#/area] in > or = 60 See_Comment A [Aut omated message] Urine sediment by The system which Microscopy high power genera acosta this result field (test code = transmitt ed reference 5821-4) range: < or = 5 . The reference range was not used to int erpret this result as normal/abnormal . Erythrocytes [#/area] none seen See_Comment [Auto mated message] in Urine sediment by The sys tem which Microscopy high power genera acosta this result field (test code = transmitt ed reference 18136-1) range: < or = 2 . The reference range was not used to int erpret this result as normal/abnormal . Epithelial none seen See_Comment [Automated mes liudmila] cells.squamous [#/area] The system which in Urine sediment by generat ed this result Microscopy high power transm itted reference field (test code = range: < or = 5. The 09910-9) reference range was not used to int erpret this result as normal/abnormal . Bacteria [#/area] in moderate none seen A Urine sediment by Microscopy high power field (test code = 5769-5) Hyaline casts [#/area] none seen none seen in Urine sediment by Microscopy low power field (test code = 5796-8) Service comment 01 (test code = 8251-1) [facility] identified in Specimen by Anaerobe+Aerobe culture 2022-03-30 00:00:00 Test Item Value Reference Range Interpretation Comments Bacteria identified in Wound by see below no growth Anaerobe culture (test code = 633-8) Bacteria identified in Wound by see below no growth A Aerobe culture (test code = 632-0) Microscopic observation see below negative [Identifier] in Specimen by Gram stain (test code = 664-3) [facility] vaginosis DNA and score panel - Vaginal fluid by [place] with probe [id number] 00:00:00 Test Item Value Reference Range Interpretation Comments Roxanne sp rRNA [Presence] in negative negative Vaginal fluid by Probe (test code = 56327-7) Trichomonas vaginalis rRNA negative negative [Presence] in Genital specimen by Probe (test code = 6568-0) Gardnerella vaginalis rRNA negative negative [Presence] in Genital specimen by Probe (test code = 6410-5) [facility] identified in Urine by [id number] 00:00:00 Test Item Value Reference Range Interpretation Comments Bacteria identified in Urine by see note A Culture (test code = 630-4) [facility] identified in Urine by [id number] 00:00:00 Test Item Value Reference Range Interpretation Comments Bacteria identified in Urine by see note A Culture (test code = 630-4) [facility] complete panel - [id number] 00:00:00 Test Item Value Reference Range Interpretation Comments Color of Urine (test yellow yellow code = 5778-6) Appearance of Urine clear clear (test code = 5767-9) Specific gravity of 1.008 1.001-1.035 Urine by Test strip (test code = 5811-5) pH of Urine by Test 6.0 5.0-8.0 strip (test code = 5803-2) Glucose [Presence] in negative negative Urine by Test strip (test code = 10654-7) Bilirubin.total negative negative [Presence] in Urine by Test strip (test code = 5770-3) Ketones [Presence] in negative negative Urine by Test strip (test code = 2514-8) Hemoglobin [Presence] negative negative in Urine by Test strip (test code = 5794-3) Protein [Presence] in negative negative Urine by Test strip (test code = 11451-1) Nitrite [Presence] in positive negative A Urine by Test strip (test code = 5802-4) Leukocyte esterase 3+ negative A [Presence] in Urine by Test strip (test code = 5799-2) Leukocytes [#/area] in 40-60 See_Comment A [Aut omated message] Urine sediment by The system which Microscopy high power genera acosta this result field (test code = transmitt ed reference 5821-4) range: < or = 5 . The reference range was not used to int erpret this result as normal/abnormal . Erythrocytes [#/area] none seen See_Comment [Auto mated message] in Urine sediment by The sys tem which Microscopy high power genera acosta this result field (test code = transmitt ed reference 92987-7) range: < or = 2 . The reference range was not used to int erpret this result as normal/abnormal . Epithelial none seen See_Comment [Automated mes liudmila] cells.squamous [#/area] The system which in Urine sediment by Needlyt ed this result Microscopy high power transm itted reference field (test code = range: < or = 5. The 69010-7) reference range was not used to int erpret this result as normal/abnormal . Bacteria [#/area] in many none seen A Urine sediment by Microscopy high power field (test code = 5769-5) Hyaline casts [#/area] none seen none seen in Urine sediment by Microscopy low power field (test code = 5796-8) Service comment 01 (test code = 8251-1) [facility] MedicalUrinalysis complete panel - [id number] 00:00:00 Test Item Value Reference Range Interpretation Comments Color of Urine (test yellow yellow code = 5778-6) Appearance of Urine clear clear (test code = 5767-9) Specific gravity of 1.008 1.001-1.035 Urine by Test strip (test code = 5811-5) pH of Urine by Test 6.0 5.0-8.0 strip (test code = 5803-2) Glucose [Presence] in negative negative Urine by Test strip (test code = 19106-2) Bilirubin.total negative negative [Presence] in Urine by Test strip (test code = 5770-3) Ketones [Presence] in negative negative Urine by Test strip (test code = 2514-8) Hemoglobin [Presence] negative negative in Urine by Test strip (test code = 5794-3) Protein [Presence] in negative negative Urine by Test strip (test code = 77858-5) Nitrite [Presence] in positive negative A Urine by Test strip (test code = 5802-4) Leukocyte esterase 3+ negative A [Presence] in Urine by Test strip (test code = 5799-2) Leukocytes [#/area] in 40-60 See_Comment A [Aut omated message] Urine sediment by The system which Microscopy high power genera acosta this result field (test code = transmitt ed reference 5821-4) range: < or = 5 . The reference range was not used to int erpret this result as normal/abnormal . Erythrocytes [#/area] none seen See_Comment [Auto mated message] in Urine sediment by The sys tem which Microscopy high power genera acosta this result field (test code = transmitt [place] reference 39975-9) range: < or = 2 . The reference range was not used to int erpret this result as normal/abnormal . Epithelial none seen See_Comment [Automated mes liudmila] cells.squamous [#/area] The system which in Urine sediment by generat ed this result Microscopy high power transm itted reference field (test code = range: < or = 5. The 40318-5) reference range was not used to int erpret this result as normal/abnormal . Bacteria [#/area] in many none seen A Urine sediment by Microscopy high power field (test code = 5769-5) Hyaline casts [#/area] none seen none seen in Urine sediment by Microscopy low power field (test code = 5796-8) Service comment 01 (test code = 8251-1) [facility] MedicalHemoglobin.gastrointestinal.lower [Presence] in Stool by [id number] 00:00:00 Test Item Value Reference Range Interpretation Comments occult bld,stool,immuno (test code = negative negative occult bld,stool,immuno) [facility] Medicalpap, LB + HR [id number] 00:00:00 Test Item Value Reference Range Interpretation Comments cervix: (test code = normal cervix:) LMP date: (test code = 03/11/2022 LMP date:) Pap, liquid-based nilm nilm (test code = Pap, liquid-based) source (liquid-based cervical (which cytology): (test code includes endocervical) = source (liquid-based cytology):) [facility] MedicalBacteria identified in Urine by [id number] 00:00:00 Test Item Value Reference Range Interpretation Comments Malonate [Mass/volume] in Serum see below no growth A (test code = 2603-9) [facility] MedicalUrinalysis complete panel - [id number] 00:00:00 Test Item Value Reference Range Interpretation Comments Glucose [Mass/volume] in Urine 1.010 1.003-1.030 --2 hours post 75 g glucose PO (test code = 1520-6) Glucose [Mass/volume] in Serum 7.0 5.0-8.0 or Plasma --2 hours post meal (test code = 1521-4) Glucose [Mass/volume] in Serum negative negative or Plasma --30 minutes post 0.5 g/kg glucose IV (test code = 1522-2) Glucose [Mass/volume] in Serum negative negative or Plasma --30 minutes post 0.05-0.15 U insulin/kg IV post 12H CFst (test code = 1523-0) Glucose [Mass/volume] in Serum negative negative or Plasma --30 minutes post 0.1 U/kg insulin (test code = 1524-8) Glucose [Mass/volume] in Serum 0.2 mg/dL 0.2-1.0 or Plasma --30 minutes post 100 g glucose PO (test code = 1525-5) Glucose [Mass/volume] in Serum negative negative or Plasma --30 minutes post 50 g lactose PO (test code = 1526-3) Glucose [Mass/volume] in Serum negative negative or Plasma --30 minutes post 75 g glucose PO (test code = 1527-1) Glucose [Mass/volume] in Serum negative negative or Plasma --30 minutes post dose insulin IV (test code = 1528-9) Deprecated Glucose none none [Mass/volume] in Serum or Plasma --30 minutes post dose insulin IV (test code = 1529-7) Glucose [Mass/volume] in Serum 0-4 0-4 or Plasma --3 minutes post 0.5 g/kg glucose IV (test code = 1534-7) Erythrocytes [#/area] in Urine none seen none seen sediment by Microscopy high power field (test code = 76034-4) Glucose [Mass/volume] in Serum none seen 0-1 or Plasma --5 minutes post 0.5 g/kg glucose IV (test code = 1543-8) Deprecated Glucose 0-4 0-4 [Mass/volume] in Serum or Plasma --6 hours post 100 g glucose PO (test code = 1545-3) Glucose [Mass/volume] in Urine few none-few --6 hours post 100 g glucose PO (test code = 1546-1) Glucose [Mass/volume] in Serum none seen 0-1 or Plasma --baseline (test code = 1547-9) Glucose [Mass/volume] in Serum none none-few or Plasma --pre 100 g glucose PO (test code = 1549-5) Coproporphyrin [Mass/time] in none none 24 hour Stool (test code = 2135-2) Leukocyte esterase [Presence] negative negative in Urine by Test strip (test code = 5799-2) Color of Urine (test code = yellow yellow, straw, elle 5778-6) Character of Urine (test code clear clear = 15340-5) [facility] JNT W/CONTRAST [id number] 20:42:00 Patient Name: SUPRIYA SOLIMAN Unit No: [id number] EXAMS: CPT CODE: [id number] MRI LW JNT W/[place] [address] MRI ARTHROGRAM LEFT HIP DIAGNOSIS: 1. Moderately displaced tear of the anterior acetabular labrum. 2. Focal calcification is present in the soft tissues adjacent to the greater trochanter compatible with moderate to marked distal gluteus medius calcific tendinitis with associated reactive bone marrow edema of the posterior aspect of the greater trochanter. INDICATION: Left hip pain COMPARISON: None PULSE SEQUENCES: Multiplanar, multisequence MRI is obtained of the left hip post arthrography. There is satisfactory contrast distention of the left hip joint. Labral tear as described. The ligamentum teres and transverse ligaments are intact. Articular surfaces are smooth. No aggressiveosseous lesion or acute fracture. The iliopsoas, rectus femoris, and hamstring tendons are normal. Distal gluteus medius tendinitis, calcification suggests calcific tendinitis. No muscle belly atrophy or edema. No iliopsoas or trochanteric bursal fluid to suggest bursitis. The visualized pelvic structures are normal. Left HIP ARTHROGRAM Comment: After informed consent was obtained a 25-gauge needle is inserted into the left hip joint under fluoroscopic control using sterile technique. A total volume of 8 mL consisting of a combination of equal parts Isovue-300 and dilute gadolinium is instilled into the joint space. The patient tolerated the procedure well. 0.5 minutes of fluoroscopy time was used on this exam. Post arthrographic films show no extravasation of contrast outside the joint. at 2042 Reported and signed by: Ilia Boyle MD [facility] NAME: SUPRIYA SOLIMAN [address] [facility] PHYS: Jose Antonio Perez : 1970 AGE: 49 SEX: F [place], [place] [address] LOC: Y.RAD PHONE #: [phone] EXAM DATE: 07/01/2019 STATUS: DEP CLI FAX #: [phone] RAD #: D/C DT PAGE 1 SignedReport (CONTINUED) Patient Name: SUPRIYA SOLIMAN Unit No: [id number] EXAMS: CPT CODE: [id number] MRI LW JNT W/[place] [address] (Continued) CC: Jose Antonio Schroeder MD Technologist: NAZANIN MCCALLUM (RT)(R)(MR) Transcribed D/ (2041) [facility] NAME: SUPRIYA SOLIMAN [address] PHYS: Jose Antonio Perez : 1970 AGE: 49 SEX: F [place] [address] LOC: Y.RAD PHONE #: [phone] EXAM DATE: 07/01/2019 STATUS: DEP CLI FAX #: [phone] RAD #: D/C DT PAGE 2 Signed Report Patient Name: SUPRIYA SOLIMAN [facility] Unit No: [id number] EXAMS: CPT CODE: [id number] MRI LW JNT W/[place] [address] (Continued) Orig Print D/T: S: 07/03/2019 (2045) [facility] NAME: [facility] PHYS: Jose Antonio Perez : 1970 AGE: 49 SEX: F [place] [address] LOC: Y.RAD PHONE #: [phone] EXAM DATE: 07/01/2019 STATUS: DEP CLI FAX #: [phone] RAD #: D/C DT PAGE 3 Signed Report- XR ARTHROGRAM HIP W/O AN LT+2019-07-03 20:42:00 Patient Name: SUPRIYA SOLIMAN Unit No: [id number] EXAMS: CPT CODE: [id number] XR ARTHROGRAM HIP W/O AN LT+ 90004 MRI ARTHROGRAM LEFT HIP DIAGNOSIS: 1. Moderately displaced tear of the anterior a cetabular labrum. 2. Focal calcification is present in the soft tissues adjacent to the greater trochanter compatible with moderate to marked distal gluteus medius calcific tendinitis with associated reactive bone marrow edema of the posterior aspect of the greater trochanter. INDICATION: Left hip pain COMPARISON: None PULSE SEQUENCES: Multiplanar, multisequence MRI is obtained of the left hip post arthrography. There is satisfactory contrast distention of the left hip joint. Labral tear as described. The ligamentum teres and transverse ligaments are intact. Articular surfaces are smooth. No aggressive osseous lesion or acute fracture. The iliopsoas, rectus femoris, and hamstring tendons are normal. Distal gluteus medius tendinitis, calcification suggests calcific tendinitis. No muscle belly atrophy or edema. No iliopsoas or trochanteric bursal fluid to suggest bursitis. The visualized pelvic structures are normal. Left HIP ARTHROGRAM Comment: After informed consent was obtained a 25-gauge needle is inserted into the left hip joint under fluoroscopic control using sterile technique. A total volume of 8 mL consisting of a combination of equal parts Isovue-300 and dilute gadolinium is instilled into the joint space. The patient tolerated the procedure well. 0.5 minutes of fluoroscopy time was used on this exam. Post arthrographic films show no extravasation of contrast outside the joint. at 2041 Reported and signed by: Ilia Boyle MD [facility] NAME: SUPRIYA SOLIMAN [address] PHYS: Jose Antonio Perez : 1970 AGE: 49 SEX: F [place] [address] LOC: Y.RAD PHONE #: [phone] EXAM DATE: 07/01/2019 STATUS: DEP CLI FAX #: [phone] RAD #: D/C DT PAGE 1 Signed Report (CONTINUED) Patient Name: [facility]PRIYA [facility]ANBEDFORD Unit No: [id number] EXAMS: CPT CODE: [id number] XR ARTHROGRAM HIP W/O AN LT+ 77182 (Continued) CC: Jose Antonio Schroeder MD Technologist: RT. Lizzy(R) Transcribed D/ (2041) [facility] NAME: SUPRIYA SOLIMAN [address] PHYS: Jose Antonio Perez : 1970 AGE: 49 SEX: F [place] [address] LOC: Y.RAD PHONE #: [phone] EXAM DATE: 07/01/2019 STATUS: DEP CLI FAX #: [phone] RAD #: D/C DT PAGE 2 Signed Report Patient Name: SUPRIYA SOLIMAN Unit No: [id number] EXAMS: CPT CODE: [id number] XR ARTHROGRAM HIP W/O AN LT+ 58231 (Continued) Orig Print D/T: S: 07/03/2019 (2045) [facility] NAME: SUPRIYA SOLIMAN [address] [facility] PHYS: Jose Antonio Perez Estrada Sean : 1970 AGE: 49 SEX: F [place], [place] [id number] LOC: Y.RAD PHONE #: [phone] EXAM DATE: 07/01/2019 STATUS: DEP CLI FAX #: [phone] RAD #: D/C DT PAGE 3 Signed Report- MRI L-SPINE W/O CONT 2019-05-03 14:26:00 Patient Name: SUPRIYA SOLIMAN Unit No: [id number] EXAMS: CPT CODE: [id number] MRI L-SPINE W/O CONT 67182 TECHNIQUE: Multiplanar, multisequence MRI examination performed of the lumbar spine without intravenous contrast material. COMPARISON: None available. FINDINGS: Five lumbar type vertebra are assumed. Alignment: Unremarkable. Bone Lesion: No suspicious osseous lesion. Fracture: None present. Paraspinal Soft Tissues: A right adnexal cystic lesion is incidentally noted on localizer imaging measuring 3.3 cm. Conus Medullaris: Termination at L1 level. Morphology is normal. L1/2: No significant abnormality. L2/3: No significant abnormality. L3/4: No significant disc bulge or herniation. No foraminal or central canal stenosis. L4/5: Disc desiccation and right asymmetric disc bulge. Superimposed right foraminal disc protrusion is suspected measuring 4 mm, which approaches the right L4 nerve. Th ere is mild left, moderate right foraminal stenosis as well as mild central canal stenosis. L5/S1: Small disc bulge. Mild bilateral facet hypertrophy. No significant foraminal or central canal stenosis. IMPRESSION: 1. Multilevel lumbar spondylosis with possible right foraminal disc protrusion at L4-I1vbvzz approaches the right L4 nerve. 2. Right adnexal cystic lesion measuring 3.3 cm. Recommend follow-up pelvic ultrasound in 6-12 weeks. at 1426 Reported and signed by: Donnie Doyle M.D. CC: Jose Antonio Schroeder MD Technologist: Seun Johnson(R) Transcribed D/ (3505) [facility] NAME: SUPRIYA SOLIMAN [address] [place] [address] PHYS: Jose Antonio Perez : 1970 AGE: 48 SEX: F [place] [address] LOC: Y.MRI PHONE #: [phone] EXAM DATE: 05/03/2019 STATUS: REG CLI FAX #: [phone] RAD #: D/C DT PAGE 1 Signed Report Patient Name: SUPRIYA LEHMAN Unit No: [id number] EXAMS: CPT CODE: [id number] MRI L-SPINE W/O CONT 66678 (Continued) Orig Print D/T: S: 05/03/2019 (1428) [facility] NAME: SUPRIYA SOLIMAN [address] [place] [address] PHYS: Jose Antonio Perez : 1970 AGE: 48 SEX: F [place] [address] LOC: Y.MRI PHONE #: [phone] EXAM DATE: 05/03/2019 STATUS: REG CLI FAX #:[phone] RAD #: D/C DT PAGE 2 Signed Report- XR FLUORO NDL 2019-02-14 12:06:00 Patient Name: SUPRIYA SOLIMAN Unit No: [id number] EXAMS: CPT CODE: [id number] XR FLUORO NDL 02763 FLUOROSCOPICALLY GUIDED LEFT PLANTAR FASCIA STEROID INJECTION COMMENT: After informed consent wasobtained a 25-gauge needle is inserted into the left plantar fascia under fluoroscopic control usingsterile technique2 mL of Kenalog 40 mg/ml and 2 mL of Lidocaine is instilled into the site. The patient tolerated the procedure well. 0.5 minutes of fluoroscopy time was used on this exam. at 1206 Reported and signed by: Ilia Boyle MD CC: Lit Jurado MD Technologist: Sangeeta Grajeda RT.(R) Transcribed D/ (4236) [facility] NAME: SUPRIYA SOLIMAN [address] [facility] PHYS: Lit Epps : 1970 AGE: 48 SEX: F [place] [address] LOC: Y.RAD PHONE #: [phone] EXAM DATE: 02/08/2019 STATUS: DEP CLI FAX #: [phone] RAD #: D/C DT PAGE 1 Signed Report Patient Name: SUPRIYA SOLIMAN Unit No: [id number] EXAMS: CPT CODE: [id number] XR FLUORO NDL 34008 (Continued) Orig Print D/T: S: 02/14/2019 (1209) [facility] NAME: SUPRIYA SOLIMAN [address] [facility] PHYS: CHEYANNEHAIM Isabel Lit Jurado : 1970 AGE: 48 SEX: F [place] [address] LOC: Y.RAD PHONE #: [phone] EXAM DATE: 02/08/2019 STATUS: DEP CLI FAX #: [phone] RAD #: D/C DT PAGE 2 Signed Report
[2022-08-28 09:32] LABS: Absolute Lymphocytes (CBC) 0.4 K/uL (0.7-4.9); Hematocrit 44.2 % (36.0-45.0); Lymphocytes % 5.4 % (15.3-44.8); MCV 91.1 fL (80-100); MPV 6.7 fL (7.6-11.3); RBC Red Blood Cell Count 4.85 M/uL (3.86-4.86)
[2022-08-28] MEDS ORDERED: ONDANSETRON 4 MG/2 ML VIAL ONE ×2 (09:39→11:53)
[2022-08-28] MEDS ORDERED: MORPHINE 4 MG/ML SYR ONE ×3 (09:39→11:41)
[2022-08-28] MEDS ORDERED: NA CHLORIDE 0.9% 1,000 ML ONE (09:40)
[2022-08-28 10:31] LABS: Urine Blood 1+ (Negative); Urine Glucose Negative (Negative); Urine Protein Negative (Negative)
[2022-08-28 10:42] LABS: Albumin 3.7 g/dL (3.4-5.0); Bilirubin Total 0.8 mg/dL (0.2-1.0); Potassium 3.4 mmol/L (3.5-5.1)
--- NOTE | 2022-08-28 11:26 | RAD REPORT ---
EXAM DESCRIPTION: CTAbdomen Pelvis W Contrast - 08/28/2022 11:11 am CLINICAL HISTORY: lower abdominal pain COMPARISON: No comparisons TECHNIQUE: CT of the abdomen and pelvis was performed with IV contrast. All CT scans are performed using dose optimization technique as appropriate and may include automated exposure control or mA/KV adjustment according to patient size. FINDINGS: Lower chest: No acute abnormality. Liver: No acute abnormality or suspicious lesions. Biliary: No biliary ductal dilatation. Stomach: No significant focal abnormality. Duodenum: No significant focal abnormality. Pancreas: No significant abnormality. Spleen: No significant abnormality. Adrenal: No suspicious lesions. Kidney/ureter: No hydronephrosis. No renal calculi. Retroperitoneum: No retroperitoneal adenopathy. Vascular: No aneurysm. Bowel: Fluid in the ascending colon. Reactive thickening likely present in the sigmoid. Enhancing flu id along the sigmoid colon measures 4.5 cm x 0.9 cm. This is not drainable percutaneously. Peritoneum: Acute appendicitis with possible micro perforation at the tip. No abscess. No bowel obstr uction. Enhancement of the parietal peritoneum in the pelvis is consistent with peritonitis. Bladder: Grossly unremarkable. Reproductive: No adnexal masses. Bones: No acute fracture. Other: n/a IMPRESSION: Acute appendicitis with microperforation. Enhancing peritoneum in the pelvis suggests pe ritonitis. Possible early abscess formation. Conveyed to Dr. Galan by Dr. Lundberg at 1119 on 08/28/22.
[2022-08-28] MEDS ORDERED: NA CHLORIDE 0.9% 100 ML IV ONE (11:33)
[2022-08-28] MEDS ORDERED: PIPERACIL/TAZO 3.375 GM VIAL IV ONE (11:33)
--- NOTE | 2022-08-28 11:35 | ER ---
Nurse's Notes [facility] [place] Name: Supriya Soliman Age: 52 yrs Sex: Female : 1970 Arrival Date: 08/28/2022 Time: 09:00 Bed 7 Private MD: Diagnosis: Unspecified acute appendicitis Presentation: 08/28 09:02 Ebola Screen: Patient denies travel to an Ebola-affected area in the 21 days before ll1 illness onset. 09:02 Method Of Arrival: Ambulatory ll1 09:03 Chief complaint: Patient states: Bloating last week. Severe abd pain since Thursday. + ll1 diarrhea. Fever 100 yesterday. Coronavirus screen: Vaccine status: Patient reports being unvaccinated. Client denies travel out of the [place] in the last 14 days. At this time, the client does not indicate any symptoms associated with coronavirus-19. Initial Sepsis Screen: Does the patient meet any 2 criteria? No. Patient's initial sepsis screen is negative. Does the patient have a suspected source of infection? Yes: Acute abdominal pain. Risk Assessment: Do you want to hurt yourself or someone else? Patient reports no desire to harm self or others. Onset of symptoms was August 26, 2022. 09:03 Acuity: LAURA 3 ll1 Historical: - Allergies: 09:05 No Known Allergies; ll1 - PMHx: 09:05 None; ll1 - PSHx: 09:05 None; ll1 - Immunization history:: Client reports having NOT received the Covid vaccine. - Social history:: Smoking status: Patient denies any tobacco usage or history of. Screenin:29 [facility] ED Fall Risk Assessment (Adult) History of falling in the last 3 months, ph including since admission No falls in past 3 months (0 pts) Confusion or Disorientation No (0 pts) Intoxicated or Sedated No (0 pts) Impaired Gait No (0 pts) Mobility Assist Device Used No (0 pt) Altered Elimination No (0 pt) Score/Fall Risk Level 0 - 2 = Low Risk Oriented to surroundings, Maintained a safe environment. Abuse screen: Denies threats or abuse. Denies injuries from another. Nutritional screening: No deficits noted. Tuberculosis screening: No symptoms or risk factors identified. Assessment: 10:28 General: Appears in no apparent distress. uncomfortable, well groomed, Behavior is ph calm, cooperative, appropriate for age. Pain: Complains of pain in umbilical area, right lower quadrant and left lower quadrant. Neuro: Level of Consciousness is awake, alert, obeys commands, Oriented to person, place, time, situation. Cardiovascular: Capillary refill < 3 seconds in bilateral fingers Patient's skin is warm and dry. Respiratory: Airway is patent Respiratory effort is even, unlabored. GI: Reports lower abdominal pain, upper abdominal pain, nausea. Derm: Skin is fragile, Skin is pink, warm \T\ dry. Musculoskeletal: Circulation, motion, and sensation intact. Range of motion: intact in all extremities. 11:08 Reassessment: Patient appears in no apparent distress at this time. Patient and/or ph family updated on plan of care and expected duration. Pain level reassessed. Patient is alert, oriented x 3, equal unlabored respirations, skin warm/dry/pink. Pt taken to CT. 11:29 Reassessment: Pt reporting abdominal pain level 9/10. Notified ERP. See [facility] for orders. ld1 11:44 Reassessment: Dr Wilkins at bedside to speak w/ pt, pt taken to OR for appendectomy. ph Vital Signs: 09:02 BP 115 / 69; Pulse 93; Resp 16; Temp 98.6; Pulse Ox 100% ; Weight 57.61 kg; Height 5 ll1 ft. 5 in. (165.10 cm); Pain 8/10; 10:17 BP 113 / 79; Pulse 86; Resp 18; Pulse Ox 99% on R/A; ld1 11:29 BP 116 / 74; Pulse 96; Resp 18; Pulse Ox 96% on R/A; Pain 9/10; ld1 09:02 Body Mass Index 21.13 (57.61 kg, 165.10 cm) 1 ED Course: 09:00 Patient arrived in ED. rg4 09:02 Arm band placed on. ll1 09:03 Wlil Rogers PA is PHCP. [facility] 09:03 Madhav Galan DO is Attending Physician. [facility] 09:05 Triage completed. ll1 09:11 Marlena White, RN is Primary Nurse. ph 10:28 Lab(s) recollected, by me, sent to lab. Missed attempt(s): 22 gauge in right ph antecubital area. Bleeding controlled, band aid applied, catheter tip intact. 10:30 Patient has correct armband on for positive identification. Placed in gown. Bed in low ph position. Call light in reach. Side rails up X 1. Pulse ox on. NIBP on. Door closed. Noise minimized. Warm blanket given. 10:37 Inserted saline lock: 22 gauge in left antecubital area, using aseptic technique. ld1 11:12 CT Abd/Pelvis - IV Contrast Only In Process Unspecified. EDMS 11:34 Juan Wilkins MD is Hospitalizing Provider. m 11:44 No provider procedures requiring assistance completed. Patient admitted, IV remains in ph place. Administered Medications: 10:38 Drug: NS 0.9% 1000 ml Route: IV; Rate: 1 bolus; Site: left antecubital; ld1 11:30 Follow up: IV Status: Completed infusion; IV Intake: 1000ml ld1 11:45 Follow up: IV Status: Infusion continued upon admission ph 10:38 Drug: Zofran (Ondansetron) 4 mg Route: IVP; Site: right antecubital; ld1 11:00 Follow up: Response: No adverse reaction ld1 10:38 Drug: morphine 4 mg Route: IVP; Infused Over: 4 mins; Site: right antecubital; ld1 11:00 Follow up: Response: No adverse reaction; Pain is decreased ld1 11:43 Drug: Zosyn (piperacillin-tazobactam) 3.375 grams Route: IVPB; Infused Over: 60 mins; ph Site: left antecubital; 11:45 Follow up: Response: No adverse reaction; IV Status: Infusion continued upon admission ph 11:43 Drug: morphine 4 mg Route: IVP; Infused Over: 4 mins; Site: left antecubital; ph 11:45 Follow up: Response: No adverse reaction ph Medication: 10:30 VIS not applicable for this client. ph Intake: 11:30 IV: 1000ml; Total: 1000ml. ld1 Outcome: 11:35 Decision to Hospitalize by Provider. [facility] 11:45 Admitted to OR accompanied by nurse, family with patient, via stretcher, with chart. ph 11:45 Condition: stable 11:45 Instructed on the need for admit. 11:45 Patient left the ED. ph Signatures: Dispatcher [employer] EDMS MicWill arizmendi PA PA jmm Hall, Patricia, RN RN ph Cooper, Tory rg4 Beny Bustamante, RN RN ll1 Jnaa Sutherland RN RN ld1
--- NOTE | 2022-08-28 11:35 | EDPHYS ---
Physician Documentation [facility] Name: Supriya Soliman Age: 52 yrs Sex: Female : 1970 Arrival Date: 08/28/2022 Time: 09:00 Bed 7 Private MD: ED Physician Madhav Galan HPI: 08/28 09:12 This 52 yrs old Female presents to ER via Ambulatory with complaints of Abdominal Pain. [facility] 09:12 The patient presents with abdominal pain. Onset: The symptoms/episode began/occurred jmm gradually. The symptoms do not radiate. Is a 52-year-old female with no known chronic medical conditions presents emerged part with complaints of abdominal pain beginning possibly 2 days ago. Patient describes the pain initially was bloating. Patient states having decreased appetite since. Denies any vomiting or diarrhea.. Historical: - Allergies: 09:05 No Known Allergies; ll1 - PMHx: 09:05 None; ll1 - PSHx: 09:05 None; ll1 - Immunization history:: Client reports having NOT received the Covid vaccine. - Social history:: Smoking status: Patient denies any tobacco usage or history of. ROS: 09:12 Constitutional: Negative for fever, chills, and weight loss, Cardiovascular: Negative jmm for chest pain, palpitations, and edema, Respiratory: Negative for shortness of breath, cough, wheezing, and pleuritic chest pain. 09:12 Abdomen/GI: Positive for abdominal pain. 09:12 All other systems are negative. Exam: 09:12 Constitutional: This is a well developed, well nourished patient who is awake, alert, jmm and in no acute distress. Head/Face: atraumatic. Eyes: EOMI, no conjunctival erythema appreciated ENT: Moist Mucus Membranes Neck: Trachea midline, Supple Chest/axilla: Normal chest wall appearance and motion. Cardiovascular: Regular rate and rhythm. No edema appreciated Respiratory: Normal respirations, no respiratory distress appreciated 09:12 Back: Normal ROM Skin: General appearance color normal MS/ Extremity: Moves all extremities, no obvious deformities appreciated, no edema noted to the lower extremities Neuro: Awake and alert Psych: Behavior is normal, Mood is normal, Patient is cooperative and pleasant 09:12 Abdomen/GI: Inspection: abdomen appears normal, Bowel sounds: normal, Palpation: soft, moderate abdominal tenderness, in the right lower quadrant and left lower quadrant. Vital Signs: 09:02 BP 115 / 69; Pulse 93; Resp 16; Temp 98.6; Pulse Ox 100% ; Weight 57.61 kg; Height 5 ll1 ft. 5 in. (165.10 cm); Pain 8/10; 10:17 BP 113 / 79; Pulse 86; Resp 18; Pulse Ox 99% on R/A; ld1 11:29 BP 116 / 74; Pulse 96; Resp 18; Pulse Ox 96% on R/A; Pain 9/10; ld1 09:02 Body Mass Index 21.13 (57.61 kg, 165.10 cm) ll1 MDM: 09:12 Patient medically screened. [facility] 11:34 Data reviewed: vital signs, nurses notes. Counseling: I had a detailed discussion with [facility] the patient and/or guardian regarding: the historical points, exam findings, and any diagnostic results supporting the discharge/admit diagnosis, lab results, the need for further work-up and treatment in the hospital. 12:29 ED course: I discussed patient with Dr. Wilkins who will evaluate the patient in the [facility] ER.. 08/28 09:15 Order name: CBC with Diff; Complete Time: 09:44 [facility] 08/28 09:15 Order name: CMP; Complete Time: 10:52 [facility] 08/28 09:15 Order name: Lipase; Complete Time: 10:52 [facility] 08/28 09:15 Order name: CT Abd/Pelvis - IV Contrast Only; Complete Time: 11:29 [facility] 08/28 10:31 Order name: Urine Dipstick-Ancillary; Complete Time: 10:32 [facility] 08/28 11:35 Order name: SARS RAPID [facility] 08/28 09:15 Order name: IV Saline Lock; Complete Time: 09:48 [facility] 08/28 09:15 Order name: Labs collected and sent; Complete Time: 09:50 [facility] 08/28 09:15 Order name: Urine Dipstick-Ancillary (obtain specimen); Complete Time: 10:38 [facility] 08/28 09:15 Order name: Urine Test (obtain specimen); Complete Time: 10:38 [facility] 08/28 09:39 Order name: Labs - recollect needed: chem 7; Complete Time: 10:19 aa5 Administered Medications: 10:38 Drug: NS 0.9% 1000 ml Route: IV; Rate: 1 bolus; Site: left antecubital; ld1 11:30 Follow up: IV Status: Completed infusion; IV Intake: 1000ml ld1 11:45 Follow up: IV Status: Infusion continued upon admission ph 10:38 Drug: Zofran (Ondansetron) 4 mg Route: IVP; Site: right antecubital; ld1 11:00 Follow up: Response: No adverse reaction ld1 10:38 Drug: morphine 4 mg Route: IVP; Infused Over: 4 mins; Site: right antecubital; ld1 11:00 Follow up: Response: No adverse reaction; Pain is decreased ld1 11:43 Drug: Zosyn (piperacillin-tazobactam) 3.375 grams Route: IVPB; Infused Over: 60 mins; ph Site: left antecubital; 11:45 Follow up: Response: No adverse reaction; IV Status: Infusion continued upon admission ph 11:43 Drug: morphine 4 mg Route: IVP; Infused Over: 4 mins; Site: left antecubital; ph 11:45 Follow up: Response: No adverse reaction ph Disposition: 16:43 Co-signature as Attending Physician, Madhav Galan DO I was immediately available on-site ms3 in the Emergency Department for consultation in the care of the patient. Disposition Summary: 08/28/22 11:35 Hospitalization Ordered Hospitalization Status: Inpatient Admission [facility] Provider: Juan Wilkins Location: Operating Room [facility] Condition: Stable [facility] Problem: new [facility] Symptoms: are unchanged [facility] Bed/Room Type: Standard [facility] Room Assignment: [facility] Diagnosis - Unspecified acute appendicitis [facility] Forms: - Medication Reconciliation Form [facility] - SBAR form [facility] Signatures: Dispatcher [employer] EDWill Gutierrez PA PA jmm Lisette Fuentes RN RN aa5 Marlena White RN RN ph Lewis, Lynsay, RN RN ll1 Madhav Galan DO DO ms3 Jana Sutherland RN RN ld1
[2022-08-28] MEDS ORDERED: FENTANYL CITR 100 MCG/2 ML ONE (11:53)
[2022-08-28] MEDS ORDERED: propofoL 200 MG/20 ML VIAL IV ONE (11:53)
[2022-08-28] MEDS ORDERED: ROCURONIUM 50 MG/5 ML VIAL IV ONE (11:53)
[2022-08-28] MEDS ORDERED: LIDOCAINE 2% MPF 5 ML VIAL ONE (11:53)
[2022-08-28] MEDS ORDERED: MIDAZOLAM HCL 2 MG/2 ML INJ ONE (11:53)
[2022-08-28] MEDS ORDERED: Ringers Lactate 1,000 ML IV ONE (11:54)
[2022-08-28 11:56] LABS: SARS-CoV-2 Antigen Rapid Res Negative (Negative)
[2022-08-28] MEDS ORDERED: KETOROLAC 30 MG/ML INJ ONE (12:01)
[2022-08-28] MEDS ORDERED: EPHEDRINE SULF 50 MG/ML VIAL ONE (12:17)
[2022-08-28] MEDS ORDERED: HYDROMORPHONE HCL 1 MG/ML INJ IV PRN (12:38)
[2022-08-28] MEDS ORDERED: GLYCOPYRROLATE 0.2 MG/ML SYR ONE (12:38)
[2022-08-28] MEDS ORDERED: SODIUM CHLORIDE 0.9% 10ML INJ IV PRN (12:38)
[2022-08-28] MEDS ORDERED: ONDANSETRON 4 MG/2 ML VIAL IV PRN (12:38)
[2022-08-28] MEDS ORDERED: NEOSTIGMINE 1 MG/ML -5 ML ONE (12:41)
--- NOTE | 2022-08-28 12:44 | P.BOP ---
Preoperative diagnosis: peritonitis, perforated appendicitis Postoperative diagnosis: same, intrabdominal abscess, umbilical henia Primary procedure: Emergent laparoscopic perforated appendicitis Secondary procedure: Laparoscopic drainage of intrabdominal abscess Trial Examiner: Linda Park ([place]) Estimated blood loss: <20cc Specimen: intrabdominal abscess culture, appendix Findings: see dicata Anesthesia: General Complications: None Drain(s): AUDREY drain Transferred to: Recovery Room Condition: Good
--- NOTE | 2022-08-28 14:50 | OP ---
Date of Procedure: 08/28/2022 Surgeon: Juan Wilkins MD Preoperative Diagnoses: Perforated appendicitis with peritonitis, abdominal pain. Postoperative Diagnoses: Perforated appendicitis with peritonitis, abdominal pain plus intraabdomina l abscess and umbilical hernia. Procedures: 1.Emergent laparoscopic appendectomy. 2.Laparoscopic drainage of intraabdominal abscess. 3.Open repair of umbilical hernia. Anesthesia: General plus local. Complications: None. Specimen: Culture from the intraabdominal abscess, an appendix and also hernia sac. Drains: AUDREY #10. Findings: The patient has perforated appendix with intraabdominal abscess, peritonitis. Complications: None. Indication: This is the case of a 52-year-old patient, came to the hospital a few minutes ago with a bdominal pain, peritonitis, diagnosed with the appendicitis, possible perforation. The benefits, alt ernatives, and risks of emergent laparoscopic possible open appendectomy fully explained, which inclu de, but not limited to infection, bleeding, damage to adjacent structures, anesthesia complication, M I, abscess, and even . The patient also understands this may not relieve any symptoms. She may need more than one surgical intervention. She understood. The OR was emergently called. She girish d a consent. Procedure In Detail: The patient was brought to the operating room and placed in supine position. A nesthesia was done without complication. Abdominal area was prepped and draped in the usual sterile fashion. Marcaine 0.5% was injected for local anesthetic followed by sharp incision of the skin in t he infraumbilical region. The incision was carried down to fascia, which was opened under direct vis ion. Peritoneum was encountered, opened under direct vision. Vicryl #1 placed inside the fascia. H asson trocar was carefully introduced. Pneumoperitoneum was obtained. I placed 2 more trocars, 5 mm each one of them in the suprapubic and left lower quadrant under direct visualization. This allowed me to visualize the area of the appendix. The patient has an intraabdominal abscess. We found absc ess in the cul-de-sac and pelvis and right lower quadrant, also purulent discharge in the right upper quadrant, so we did a total almost 6 L of fluid to clear this up, but we started sequentially the fi rst fluid just to visualize the area. We noticed the base of the appendix seems to be spared from th is necrotic appendix, so we created a window in the base of the appendix, transected that with an End o-JF 45 mm nonvascular, and the mesoappendix with a combination of Endo-JF 45 mm vascular and 5 mm clips. Appendix removed from abdominal cavity using an EndoCatch through the umbilical incision. We inspected the area once again. We visualized the abdomen. Once again, we irrigated the area with a lmost 6 L of saline until clear. Then, I proceeded to leave a AUDREY drain coming out 1 of the trocar si mynor located in the pelvis and right lower quadrant. After fully inspecting making sure there was no bowel leak, no bleeding, I proceeded to remove the trocars under direct vision. Deflated the pneumop eritoneum. Closed the fascia and umbilical hernia that the patient has present that we removed at th e beginning with #1 Vicryl. Irrigated subcutaneous tissue, closed that with 3-0 chromic and the skin with ja. Sponge count, instrument counts correct. The patient tolerated the procedure well. The patient is on her way to recovery in stable condition. The patient will remain on IV antibiotics . DEAN/GOPAL Voice ID: [id number] Report ID: [id number]
[2022-08-28] MEDS: HYDROCODONE/APAP 5/325 MG TAB PO PRN ×2 (16:16→20:09)
[2022-08-28] MEDS ORDERED: PIPER TAZO 3.375 GM in NA CHLORIDE 0.9% 100 ML IV SCH ×2 (17:00→18:00)
[2022-08-28 17:09] VITALS: BMI 21.1
[2022-08-28] MEDS: PIPER TAZO 3.375 GM in NA CHLORIDE 0.9% 100 ML IV SCH (20:09)
--- NOTE | 2022-08-29 00:27 | HP ---
Date of Admission: 08/28/2022 Diagnosis: Acute appendicitis. History Of Present Illness: This is a case of a female who comes to us with periumbilical right lowe r quadrant pain since Thursday, today is . Over the last 48 hours it has gotten worse to the point that this morning she could not take it anymore and she showed up at the ER. She had a workup done showing acute appendicitis with probably microperforation. Past Medical History: None. Allergies: NONE. Past Surgical History: A bladder sling, transvaginal done in [place] [facility]. Social History: She does not smoke. She does not drink alcohol. Family History: Noncontributory. Review of Systems: Nausea, vomiting, and abdominal pain. 10 points otherwise unremarkable. No previous colonoscopy, al though she was advised to do so. Physical Examination: General: The patient is awake and alert. Eyes: Pupils are equal and reactive. Anicteric. Neck: Supple. Chest: Clear. Abdomen: Right lower quadrant tenderness with peritonitis. Rovsing sign positive. Psoas signs posi tive. Guarding and rebound. Pelvic: Deferred. Breasts: Deferred. Rectal: Deferred. Extremities: Good capillary refill. Neurologic: Cranial nerves 2 through 12 grossly within normal limits. Laboratory Data: Blood work shows WBC count of 7.1 with neutrophils of 88.1, elevated and platelets of 230. Potassium 3.4, glucose 134, lipase 79, nitrite negative. CAT scan of abdomen and pelvis radha ws acute appendicitis with microperforation with peritonitis, possible early abscess. Assessment: This is a 52-year-old patient with abdominal pain, acute appendicitis, possible perforat ion, and peritonitis present. The benefits, alternatives, and risks of emergent laparoscopic possibl e open appendectomy were fully explained, which include, but not limited to infection, bleeding, renate ge to adjacent structures, anesthesia complication, nonhealing wound, SD, and even . She also u nderstands this may not relieve her symptoms and she might need more than one surgical intervention. She understands the chance of long-term antibiotics or abscess formation. She understands the impor tance of colonoscopy, although we cannot do that at this moment. She was encouraged in the next few weeks, if she improved from this to have her colonoscopy. HM/MODL Voice ID: [id number]
[2022-08-29] MEDS: HYDROCODONE/APAP 5/325 MG TAB PO PRN ×4 (04:25→18:34)
[2022-08-29] MEDS: PIPER TAZO 3.375 GM in NA CHLORIDE 0.9% 100 ML IV SCH ×3 (04:25→20:08)
[2022-08-29 05:59] LABS: Absolute Lymphocytes (CBC) 0.6 K/uL (0.7-4.9); Hematocrit 35.8 % (36.0-45.0); Lymphocytes % 9.6 % (15.3-44.8); MCV 92.6 fL (80-100); MPV 6.8 fL (7.6-11.3); RBC Red Blood Cell Count 3.87 M/uL (3.86-4.86)
[2022-08-29 06:15] LABS: Potassium 3.7 mmol/L (3.5-5.1)
[2022-08-29] MEDS: PANTOPRAZOLE 40 MG INJ IVP SCH (09:05)
[2022-08-29] MEDS ORDERED: MELATONIN 5 MG TABLET PO PRN (18:35)
--- NOTE | 2022-08-29 19:24 | PN ---
Date of Progress Note: 08/29/2022 Diagnosis: Perforated appendicitis with intraabdominal abscess status post laparoscopic appendectomy . Subjective: The patient is doing well. This is day #1. Still nauseous. No fever. No shortness of breath. No chest pain. Objective: Chest: Clear. Abdomen: Intact surgical site. AUDREY drain serosanguineous. Extremities: Good capillary refill. No calf tenderness. Laboratory Data: Blood work reviewed. Plan: Still n.p.o. We might try clears tomorrow if she break the ileus that we expect. Continue th e antibiotics and out of bed. Incentive spirometry. SCDs. DVT prophylaxis. HM/MODL Voice ID: [id number] Report ID: [id number]
[2022-08-30] MEDS: HYDROCODONE/APAP 5/325 MG TAB PO PRN ×4 (00:15→17:20)
[2022-08-30] MEDS: PIPER TAZO 3.375 GM in NA CHLORIDE 0.9% 100 ML IV SCH ×3 (05:03→20:05)
[2022-08-30] MEDS: PANTOPRAZOLE 40 MG INJ IVP SCH (08:26)
--- NOTE | 2022-08-30 17:31 | PN ---
Date of Progress Note: 08/30/2022 Diagnoses: Acute perforated appendicitis with peritonitis and intraabdominal abscess. Subjective: The patient is doing better. No nausea, no vomiting. Starting to pass some flatus. Objective: Chest: Clear. Abdomen: Soft and depressible. Intact surgical site. AUDREY drain serosanguineous. Extremities: Good capillary refill. No calf tenderness. Laboratory Data: Blood work reviewed. Plan: Will be incentive spirometry, out of bed. Continue antibiotics. Follow up cultures. Advance diet. HM/MODL Voice ID: [id number] Report ID: [id number]
[2022-08-30 20:40] VITALS: O2SAT 99
[2022-08-31] MEDS ORDERED: PIPERACIL/TAZO 3.375 GM VIAL IV ONE (03:43)
[2022-08-31] MEDS ORDERED: NA CHLORIDE 0.9% 100 ML ONE (03:45)
[2022-08-31] MEDS: PIPER TAZO 3.375 GM in NA CHLORIDE 0.9% 100 ML IV SCH ×3 (03:52→20:14)
[2022-08-31] MEDS: HYDROCODONE/APAP 5/325 MG TAB PO PRN ×4 (03:52→20:15)
[2022-08-31] MEDS: PANTOPRAZOLE 40 MG INJ IVP SCH (08:54)
--- NOTE | 2022-08-31 19:13 | PN ---
Date of Progress Note: 08/31/2022 Diagnoses: Acute perforated appendicitis with intraabdominal abscess. Subjective: Doing better. No shortness of breath. No chest pain. No fever. Ambulating. Passing flatus. Objective: Chest: Clear. Abdomen: Soft and depressible. Intact surgical site. Laboratory Data: Previous blood work reviewed. Plan: Continue AUDREY drain. Continue antibiotics and she is right now in full liquid diet. We are goi ng to advance this afternoon to heart healthy diet. DEAN/GOPAL Voice ID: [id number] Report ID: [id number]
[2022-09-01] MEDS: HYDROCODONE/APAP 5/325 MG TAB PO PRN ×3 (00:30→08:21)
[2022-09-01] MEDS: PIPER TAZO 3.375 GM in NA CHLORIDE 0.9% 100 ML IV SCH (04:36)
[2022-09-01] MEDS: PANTOPRAZOLE 40 MG INJ IVP SCH (08:21)
--- NOTE | 2022-09-01 10:05 | P.DS ---
Admission Date: 08/29/22 Discharge Date: 09/01/22 Disposition: ROUTINE DISCHARGE Discharge Condition: GOOD - Problems (1) Acute appendicitis with appendiceal abscess Current Visit: Yes Status: Acute (2) Acute appendicitis with generalized peritonitis Current Visit: Yes Status: Acute (3) Acute appendicitis with generalized peritonitis and abscess Onset Date: ~08/29/22 Current Visit: Yes Status: Acute Hospital Course: unremarkable Vital Signs/Physical Exam: Temp Pulse Resp BP Pulse Ox 97.8 F 74 16 119/62 96 09/01/22 08:00 09/01/22 08:00 09/01/22 09:21 09/01/22 08:00 09/01/22 09:21 General: Alert, In no apparent distress, Oriented x3, Oriented x1 HEENT: Normocephalic, PERRLA Neck: Supple Respiratory: Normal air movement Cardiovascular: No edema, Normal pulses Gastrointestinal: Normal bowel sounds, Soft and benign Musculoskeletal: No erythema, No tenderness, No warmth Integumentary: No rashes, No breakdown Neurological: Normal speech Laboratory Data at Discharge: WBC 5.80 K/uL (4.3-10.9) 08/29/22 05:52 Hgb 12.1 g/dL (12.0-15.0) D 08/29/22 05:52 Hct 35.8 % (36.0-45.0) L 08/29/22 05:52 Plt Count 180 K/uL (152-406) 08/29/22 05:52 Sodium 140 mmol/L (136-145) D 08/29/22 05:52 Potassium 3.7 mmol/L (3.5-5.1) 08/29/22 05:52 BUN 13 mg/dL (7-18) 08/29/22 05:52 Creatinine 0.72 mg/dL (0.55-1.02) 08/29/22 05:52 Glucose 99 mg/dL (74-106) 08/29/22 05:52 Total Bilirubin 0.8 mg/dL (0.2-1.0) 08/28/22 10:19 AST 16 U/L (15-37) 08/28/22 10:19 ALT 29 U/L (13-56) 08/28/22 10:19 Alkaline Phosphatase 44 U/L (45-117) L 08/28/22 10:19 Lipase 79 U/L (73-393) 08/28/22 10:19 Home Medications: NK [No Home Meds] 08/29/22 Physician Discharge Instructions: AUDREY to bulb suction, record ouotput q24h Diet: AHA Activity: No lifting more than 10 lbs Followup: Juan Wilkins MD [ACTIVE - CAN ADMIT] - 09/03/22 Dale Lopez MD [Primary Care Provider] - If your Symptoms Worsen
[2022-09-01 12:25] VITALS: BP 124/77; TEMP 98
== END 2022-09-01 13:20 | disposition home or self-care (01) | DRG 340 ==
LOC: ER 08:56 → ERHOLD 11:36 → 2ND 13:05 → OBSVTOIN 08-29 09:25
PROVIDERS: ADMIT Surgery; ATTEND Surgery
PROC: 0W9G40Z Drainage of Peritoneal Cavity with Drainage Device, Percutaneous Endoscopic Approach (ICD-10-PCS; 2022-08-28)
PROC: 0WQF0ZZ Repair Abdominal Wall, Open Approach (ICD-10-PCS; 2022-08-28)
PROC: 0DTJ0ZZ Resection of Appendix, Open Approach (ICD-10-PCS; principal; 2022-08-28 09:15)
DX: K35.21 Acute appendicitis with generalized peritonitis, with abscess (principal); K42.9 Umbilical hernia without obstruction or gangrene; Z28.310 Unvaccinated for COVID-19; Z20.822 Contact with and (suspected) exposure to COVID-19
CPT/HCPCS: 36415; 74177; 80048; 80053; 81003; 83690; 85025; 87070; 87075; 87205; 87811; 88302; 88304; 94010; 97116; 97530; 99285; C9113; G0378; J2001; J2250; J2405; J2543; J2704; J2710; J3010; J7030; J7120; Q9967

== ENCOUNTER 2022-10-27 07:14 | Day surgery (SDC) | payer OTHER ==
[2022-10-27] MEDS ORDERED: Ringers Lactate 1,000 ML IV ONE (07:51)
[2022-10-27] MEDS ORDERED: LIDOCAINE 1% MPF 5 ML VIAL ONE (09:15)
[2022-10-27] MEDS ORDERED: propofoL 200 MG/20 ML VIAL IV ONE ×2 (09:15→09:16)
[2022-10-27 12:23] VITALS: TEMP 97.9; O2SAT 100
[2022-10-27 12:24] VITALS: BP 107/75
== END 2022-10-27 10:00 | disposition home or self-care (01) ==
LOC: OR 07:14
PROVIDERS: ATTEND Surgery
PROC: 0DJD8ZZ Inspection of Lower Intestinal Tract, Via Natural or Artificial Opening Endoscopic (ICD-10-PCS; principal; 2022-10-27 09:15)
DX: Z12.11 Encounter for screening for malignant neoplasm of colon (principal); K57.30 Diverticulosis of large intestine without perforation or abscess without bleeding; K64.4 Residual hemorrhoidal skin tags; K64.8 Other hemorrhoids
CPT/HCPCS: 81025; 45378; J2704 ×2; J2001; J7120

== ENCOUNTER 2025-05-15 08:08 | Emergency (ER) | payer OTHER ==
[2025-05-15 08:52] LABS: Sqamous Epithelial <5 /HPF (None Seen); Urine Crystals Unidentified Few /HPF (None Seen); Urine Culture Reflex Order REFLEXED; Urine Microscopic Reflex YN ORDER UMIC; Urine WBC Clump Rare /HPF (None Seen); Urine Yeast (Budding) Few /HPF (None Seen)
[2025-05-15 09:04] LABS: ALT/SGPT 32.0 U/L (13-56); AST/SGOT 21.0 U/L (15-37); Albumin 4.2 g/dL (3.4-5.0); Albumin/Globulin Ratio 1.1 (1.1-1.8); Alkaline Phosphatase 60.0 U/L (45-117); Anion Gap 9.5 mEq/L (5.0-15.0); BUN Blood Urea Nitrogen 15.0 mg/dL (7-18); Globulin 4.0 g/dL (2.3-3.5); Glucose Level 84.0 mg/dL (74-106); Lipase 33.0 U/L (13-75); Potassium 3.5 mEq/L (3.5-5.1)
[2025-05-15 09:20] LABS: Absolute Lymphocytes (CBC) 1.1 K/uL (0.7-4.9); Hematocrit 50.1 % (36.0-45.0); Hemoglobin 16.7 g/dL (12.0-15.0); MCH 30.2 pg (27.0-35.0); MCHC 33.4 g/dL (32.0-36.0); MCV 90.5 fL (80-100); MPV 7.0 fL (7.6-11.3); Nucleated RBC Absolute Count 0.0 (0-0); Nucleated Red Blood Cells % 0.3 % (0-0); RBC Red Blood Cell Count 5.54 M/uL (3.86-4.86); White Blood Count 2.90 thou/uL (4.3-10.9)
[2025-05-15] MEDS ORDERED: NA CHLORIDE 0.9% 1,000 ML ONE (09:32)
--- NOTE | 2025-05-15 09:41 | RAD REPORT ---
EXAMINATION: Abdomen Pelvis W Contrast CLINICAL INDICATION: Female, 54 years old.ABD PAIN TECHNIQUE: CT abdomen and pelvis was performed, after the administration of IV contrast, as per [facility] protocol. Axial, sagittal and coronal reconstructions were obtained. One or more of the following dose reduction techniques were used: Automated exposure control, adjustment of the mA and/o r kV according to patient size, and/or iterative reconstruction. Unless otherwise specified, incidental findings do not require dedicated imaging follow-up. [id number]. COMPARISON: 08/28/2022 FINDINGS: LOWER CHEST: No acute process identified.No significant pericardial effusion. UPPER GI: No significant abnormality. LIVER: Benign appearing low density liver lesions. No suspicious mass. GALLBLADDER/BILE DUCTS: No biliary ductal dilatation.? PANCREAS: No mass, ductal dilation, or rosa-pancreatic fluid. SPLEEN: Unremarkable. ADRENALS: No adrenal masses. KIDNEYS AND URETERS: No hydronephrosis.Low density and/or too small to characterize renal lesions whi ch are statistically benign.No renal calculi.No ureteral calculi. Mild right renal scarring. ABDOMINAL AORTA AND OTHER VESSELS: Normal caliber aorta and IVC. PERITONEUM: No abnormal free fluid. No free air. LYMPH NODES: No pathologic lymphadenopathy. ABDOMINAL WALL: Small fat containing umbilical hernia. SMALL BOWEL/COLON: Small bowel has normal course and caliber. No colonic wall thickening or pericolon ic inflammatory changes.Appendix absent. Ovoid densities in the colon presumably undigested radiodense pills. URINARY BLADDER: Circumferential bladder wall thickening which could reflect cystitis. Correlate with urinalysis. REPRODUCTIVE ORGANS: No pathologic process. MUSCULOSKELETAL: No acute or suspicious osseous abnormality. ADDITIONAL FINDINGS: None. IMPRESSION: No acute findings within the abdomen or pelvis. Possible cystitis. Incidental findings as noted above.
--- NOTE | 2025-05-15 09:47 | EDPHYS ---
Physician Documentation [facility] Name: Supriya Soliman Age: 54 yrs Sex: Female : 1970 Arrival Date: 05/15/2025 Time: 08:08 Bed 12 Private MD: ED Physician Chuy Mckay HPI: 05/15 08:20 This 54 yrs old Female presents to ER via Ambulatory with complaints of Abdominal Pain, kb Urinary Problem. 08:20 Pt is a 54 year old female who presents for LLQ pain that radiates to left flank area. kb States pain started 3 days ago with fever. Reports she developed urinary frequency, cloudy urine and slight dysuria yesterday. Pt reports history of diverticulosis as well. . Historical: - Allergies: 08:16 No Known Allergies; ss - Home Meds: 08:19 None [Active]; ss - PMHx: 08:16 None; ss - PSHx: 08:19 Appendectomy; ss - Infectious Disease History:: Denies. - Social history:: Smoking status: Patient denies any tobacco usage or history of. ROS: 08:20 Constitutional: As per HPI kb Exam: 08:20 Constitutional: This is a well developed, well nourished patient who is awake, alert, kb and in no acute distress. Head/Face: Normocephalic, atraumatic. ENT: Moist Mucous membranes Cardiovascular: Regular rate Respiratory: Respirations even and unlabored. No increased work of breathing. Talking in full sentences Skin: Warm, dry with normal turgor. Normal color. MS/ Extremity: Pulses equal, no cyanosis. Neurovascular intact. Full, normal range of motion. Neuro: Awake and alert, GCS 15, oriented to person, place, time, and situation. 08:20 Abdomen/GI: Inspection: abdomen appears normal, Bowel sounds: normal, Palpation: soft, in all quadrants, mild abdominal tenderness, in the left lower quadrant, Vital Signs: 08:14 BP 146 / 93; Pulse 76; Resp 15; Temp 98.1(O); Pulse Ox 100% on R/A; Weight 58.97 kg; ss Height 5 ft. 5 in. ; Pain 4/10; 08:14 Body Mass Index 21.63 (58.97 kg, 165.1 cm) 08:14 Pain Scale: Adult ss MDM: 08:11 Medical Screening Exam initiated rn 08:23 Data reviewed: vital signs, nurses notes. kb 09:46 Differential diagnosis: diverticulitis, Pyelonephritis, Ureterolithiasis, urinary tract kb infection, colitis. Counseling: I had a detailed discussion with the patient and/or guardian regarding the historical points, exam findings, and any diagnostic results supporting the discharge/admit diagnosis, lab results, radiology results, the need for outpatient follow up, a family practitioner, to return to the emergency department if symptoms worsen or persist or if there are any questions or concerns that arise at home. 05/15 08:19 Order name: CBC with Diff kb 05/15 08:19 Order name: CMP; Complete Time: 09:04 kb 05/15 08:19 Order name: Lipase; Complete Time: 09:04 kb 05/15 08:19 Order name: UA Rfx Tone Cult if indicated; Complete Time: 08:58 kb 05/15 09:00 Order name: Urine Culture EDMS 05/15 08:19 Order name: CT Abd/Pelvis - IV Contrast Only; Complete Time: 09:42 kb 05/15 08:19 Order name: IV Saline Lock; Complete Time: 08:41 kb 05/15 08:19 Order name: Labs collected and sent; Complete Time: 08:41 kb Administered Medications: 09:43 Drug: NS 0.9% IV 1000 ml IV at 1000 ml once; to be given as a bolus over 60 minutes ss Route: IV; Rate: 1000 ml; Site: right antecubital; 10:46 Follow up: IV Status: Completed infusion; IV Intake: 1000ml ss 10:06 Drug: Amoxicillin-Clavulanate PO 875 mg PO once Route: PO; ss 10:46 Follow up: Response: No adverse reaction ss Disposition: 17:10 Co-signature as Attending Physician, Chuy Mckay MD I reviewed the patient's care rn provided by the Advanced Practice Provider and agree with the diagnosis and treatment plan. Disposition Summary: 05/15/25 09:46 Discharge Ordered Notes: Location: Home kb Condition: Stable kb Diagnosis - UTI/ Urinary tract infection, site not specified kb Followup: kb - With: Emergency Department - When: As needed - Reason: Worsening of condition Followup: kb - With: Private Physician - When: 2 - 3 days - Reason: Recheck today's complaints, Continuance of care, Re-evaluation by your physician Discharge Instructions: - Discharge Summary Sheet kb - Urinary Tract Infection, Adult, [id number] kb Forms: - Medication Reconciliation Form kb - Antibiotic Education kb - Prescription Opioid Use kb - Patient Portal Instructions kb - Leadership Thank You Letter kb Prescriptions: - Augmentin 875-125 mg Oral Tablet - take 1 tablet ORAL route every 12 hours for 10 days; 20 tablet; Refills: 0, kb Product Selection Permitted Signatures: Dispatcher [employer] EDMariana Dow, COMMITTEE MEMBER-C COMMITTEE MEMBER-Chuy Chavez MD MD rn Ramona Burgess RN RN ss Corrections: (The following items were deleted from the chart) 08:19 08:19 CBC+H.LAB.BRZ ordered. EDMS EDMS 08:19 08:19 COMPREHENSIVE METABOLIC PANEL+C.LAB.BRZ ordered. EDMS EDMS 08:19 08:19 LIPASE+C.LAB.BRZ ordered. EDMS EDMS 08:19 08:19 UA Rfx Tone Cult if indicated+U.LAB.BRZ ordered. EDMS EDMS 08:19 08:19 Abdomen Pelvis W Con+CT.RAD.BRZ ordered. EDMS EDMS
--- NOTE | 2025-05-15 09:47 | ER ---
Nurse's Notes [facility] Name: Supriya Soliman Age: 54 yrs Sex: Female : 1970 Arrival Date: 05/15/2025 Time: 08:08 Bed 12 Private MD: Diagnosis: UTI/ Urinary tract infection, site not specified Presentation: 05/15 08:14 Chief complaint: Patient states: LLQ pain since Thursday that seems to radiate in the ss back. Described as dull with episodes of sharp pains. Coronavirus screen: Client denies travel out of the [place] in the last 14 days. Ebola Screen: Patient denies exposure to infectious person. Patient denies travel to an Ebola-affected area in the 21 days before illness onset. Initial Sepsis Screen: Does the patient meet any 2 criteria? No. Patient's initial sepsis screen is negative. Does the patient have a suspected source of infection? No. Patient's initial sepsis screen is negative. Risk Assessment: Do you want to hurt yourself or someone else? Patient reports no desire to harm self or others. Onset of symptoms was May 13, 2025. 08:14 Method Of Arrival: Ambulatory ss 08:14 Acuity: LAURA 3 ss Historical: - Allergies: 08:16 No Known Allergies; ss - Home Meds: 08:19 None [Active]; ss - PMHx: 08:16 None; ss - PSHx: 08:19 Appendectomy; ss - Infectious Disease History:: Denies. - Social history:: Smoking status: Patient denies any tobacco usage or history of. Screenin:46 Abuse screen: Denies threats or abuse. Denies injuries from another. Nutritional ss screening: No deficits noted. Tuberculosis screening: Never had TB. Assessment: 10:06 Reassessment: Patient appears in no apparent distress at this time. Patient and/or ss family updated on plan of care and expected duration. Pain level reassessed. Patient is alert, oriented x 3, equal unlabored respirations, skin warm/dry/pink. awaiting fluids to finish infusing prior to discharge. Vital Signs: 08:14 BP 146 / 93; Pulse 76; Resp 15; Temp 98.1(O); Pulse Ox 100% on R/A; Weight 58.97 kg; ss Height 5 ft. 5 in. ; Pain 4/10; 08:14 Body Mass Index 21.63 (58.97 kg, 165.1 cm) ss 08:14 Pain Scale: Adult ss ED Course: 08:10 Patient arrived in ED. im 08:11 Chuy Mckay MD is Attending Physician. rn 08:16 Triage completed. ss 08:17 Arm band placed on right wrist. ss 08:18 Mariana Velasquez FNP-C [facility]. kb 08:41 Inserted saline lock: 20 gauge in right forearm, using aseptic technique. Blood pm7 collected. Flushed with 10 mL NS Missed attempt(s): 22 gauge in left antecubital area. 09:20 CT Abd/Pelvis - IV Contrast Only In Process Unspecified. EDMS 09:43 Ramona Burgess, JOHNNY is Primary Nurse. ss 10:06 No provider procedures requiring assistance completed. ss 10:46 Patient has correct armband on for positive identification. ss 10:46 IV discontinued, intact, bleeding controlled, No redness/swelling at site. Pressure ss dressing applied. Administered Medications: 09:43 Drug: NS 0.9% IV 1000 ml IV at 1000 ml once; to be given as a bolus over 60 minutes ss Route: IV; Rate: 1000 ml; Site: right antecubital; 10:46 Follow up: IV Status: Completed infusion; IV Intake: 1000ml ss 10:06 Drug: Amoxicillin-Clavulanate PO 875 mg PO once Route: PO; ss 10:46 Follow up: Response: No adverse reaction ss Intake: 10:46 IV: 1000ml; Total: 1000ml. ss Outcome: 09:46 Discharge ordered by . kb 10:06 Condition: good ss 10:06 Discharge instructions given to patient, Instructed on discharge instructions, follow up and referral plans. medication usage, Demonstrated understanding of instructions, follow-up care, medications, 10:46 Discharged to home ambulatory, ss 10:47 Patient left the ED. ss Signatures: Dispatcher [employer] EDMS Mariana Velasquez FNP-C FNP-Chuy Chavez MD MD rn Blanchard, Shelby, RN RN Ninfa Cabrales Paige pm7 Corrections: (The following items were deleted from the chart) 08:18 08:14 Chief complaint: Patient states: LLQ pain since Thursday that seems to radiate in ss the back. Described as dull with episodes of sharp pains. ss
[2025-05-15] MEDS ORDERED: AMOX/K CLAV 875 MG TAB ONE (09:59)
[2025-05-15 10:46] LABS: White Blood Cell Scan OK (OK)
[2025-05-15 10:47] LABS: Blood Morphology Comment NOT SEEN (NOT SEEN)
[2025-05-15 11:22] VITALS: BP 146/93; TEMP 98.1; O2SAT 100
== END 2025-05-15 10:47 | disposition home or self-care (01) ==
LOC: ER 08:08
DX: N39.0 Urinary tract infection, site not specified (principal)
CPT/HCPCS: 87088; 85025; 81001; 87086; 36415; 83690; 80053; 74177; 96360; 99284; Q9967; J7030